=== PATIENT | female | born 1965 | race Caucasian/White ===

== ENCOUNTER 2017-05-28 10:00 | Day surgery (SDC) | payer BC ==
[~2017-05-28] VITALS: Ht 170.2 cm; Wt 75.8 kg
[~2017-05-28 10:00] MED LIST: BUPROPION XL150 MG PO; BYSTOLIC2.5 MG PO; METOPROLOL SUCC50 MG PO; SPIRONOLACTONE25 MG PO
[2017-05-28] MEDS ORDERED: OXYCODON-ACETA1 EAC2 PO (13:28)
[2017-05-28] MEDS ORDERED: IBUPROFEN600 MG PO (13:28)
[2017-05-28] MEDS ORDERED: MAPAP325 MG PO (13:28)
--- NOTE | 2017-05-28 14:20 | NUR ---
ICED WATER GIVEN. CALL LIGHT W/IN REACH. PT DENIES DESIRE FOR FOOD @ THIS TIME.
--- NOTE | 2017-05-28 14:40 | NUR ---
PT REPORTS INCREASED PAIN IN RUQ. RIGHT LOWER INCISION REINFORCED W/GAUZE AND TAPE D/T DRAINAGE THROUGH THE GOWN. PT TOLERATES REINFORCEMENT WELL. JELLO GIVEN. PT EATS AND TOLERATES THAT WELL. MORE ICED WATER GIVEN.
--- NOTE | 2017-05-28 15:13 | NUR ---
PT PUSHES CALL LIGHT TO REPORT "THE PAIN MEDICINE ISN'T WORKING". PT RESTLESSLY MOVING LEGS. ADD'L PRN GIVEN. PT GIVEN HER CELL PHONE FROM HER BAG.
--- NOTE | 2017-05-28 16:13 | NUR ---
MORE ICED WATER GIVEN. PT REQ ADD'L PRN FOR PAIN. PT CONTINUES TO DENY NAUSEA.
--- NOTE | 2017-05-28 16:58 | NUR ---
LE 1640: PT UP TO BR W/RN STANDBY. PT AMBULATES WELL AND VOIDS 200 ML CLEAR YELLOW URINE AND REQ DC HOME. PT DRESSES SELF AND TOLERATES THAT WELL. DC INSTRUCTIONS GIVEN AND PT VERBALIZES UNDERSTANDING. PT TRANSFERS SELF TO AND TO PERSONAL VEHICLE WELL.
--- NOTE | 2017-05-30 08:26 | OR ---
[facility] [address] [place], [place] [address] Signed DATE OF OPERATION: 05/28/2017 SURGEON: Harman Irwin MD PREOPERATIVE DIAGNOSES: Acalculous cholecystitis, gallbladder sludge with biliary pain. POSTOPERATIVE DIAGNOSIS: Acalculous cholecystitis, gallbladder sludge with biliary pain. PROCEDURES: 1. Laparoscopic cholecystectomy with intraoperative cholangiogram. 2. Surgeon-directed fluoroscopy. SURGEON: Harman Irwin M.D. ANESTHESIA: General endotracheal (Se Arellano CRNA) and local 20 mL of 0.25% Marcaine with epinephrine. INDICATION: This 52-year-old white woman is the patient Dr. Jose Teran and was recently seen by him with recurrence of right upper abdominal, epigastric, and right subscapular pain. She had similar episodes a number of months ago and symptoms have been worsening lately. At that time, she underwent a gallbladder ultrasound, which showed biliary sludge. The patient has had accelerating symptoms lately and highly suggestive of a biliary disease. She has incidentally noted to have urinary tract infection, for which I treated her with Bactrim DS 1 p.o. b.i.d. recently. She is admitted at this time to undergo cholecystectomy, preferred by a laparoscopic approach. She understands the risks of bleeding, infection, bile duct injury, need for open procedure, and most importantly failure to cure her symptoms. She understands this and wished to proceed. FINDINGS: Gallbladder was chronically inflamed. The liver was normal. Intraoperative cholangiogram was normal as well. The gallbladder once opened showed chronic inflammatory change of the mucosa and some biliary sludge, but no sign of stones. DESCRIPTION OF PROCEDURE: The patient was brought to the operating room, given a general endotracheal anesthetic. Preoperative antibiotic Ancef was given. Sequential compression device stockings used. Heparin was administered subcutaneously. The abdomen was prepared with a chlorhexidine solution after satisfactory general endotracheal anesthesia, and sterilely draped. Infraumbilical incision was made and using an open Alberto cannula technique Electronically Signed By: HARMAN IRWIN MD 05/30/17 0826 PATIENT NAME: RANDY CALDWELL OPERATIVE REPORT DATE OF : 69 PHYSICIAN: HARMAN IRWIN MD REPORT #: [id number] REPORT IS CONFIDENTIAL AND NOT TO BE RELEASED WITHOUT AUTHORIZATION [facility] [address] [place], [place] [address] Signed pneumoperitoneum achieved to a level of 14 mmHg of carbon dioxide gas. Intraabdominal inspection showed no sign of ascites or carcinomatosis. The liver appeared normal. The gallbladder was obscured initially. Three additional trocars were placed in usual configuration in the subxiphoid, right midclavicular, and right anterior axillary line. Gallbladder was elevated cephalad and retracted laterally. Using blunt electrocautery dissection, the triangle of Calot dissected free identifying well the cystic duct and cystic artery. A clip was applied across the gallbladder cystic duct junction and transverse choledochotomy made the cystic duct. Retrograde milking of the duct showed a thick yellowish bile. There was no sign of stone. Using an Lo type cholangiocatheter, intraoperative cholangiography was undertaken showing free flow of contrast in the biliary tree with prompt emptying into the duodenum. There was minimal retrograde flow and on that basis, morphine 4 mg was administered by the boner meat and after a few minutes of waiting, repeat cholangiography was undertaken at this time showing retrograde filling into the proximal biliary tree and showing a normal biliary anatomy. The catheter was removed. The cystic duct was triply clipped and divided, and the gallbladder dissected free in a retrograde fashion using electrocautery. The gallbladder was extracted through the infraumbilical port site without problem, opened on the back table and found to have thick biliary sludge as well as chronic inflammatory change of the mucosa. There was no sign of neoplasm. Reinspection of the subhepatic space showed no sign of bile leak, bleeding, or other problems. Excess irrigation of fluid was suctioned free and the trocars were removed under direct visualization. The inferior-most 5 mm trocar site on the right side had a minimal amount of oozing, this was secured easily with electrocautery. Plans were then made for closure. The infraumbilical fascial incision was reapproximated with interrupted 0 Vicryl suture. All wounds were copiously irrigated with saline solution and 20 mL of 0.25% Marcaine with epinephrine was injected in the trocar sites. The skin was closed with interrupted 3-0 Vicryl. Steri-Strips were applied. She was ultimately extubated and transferred to recovery in good condition having suffered no complication. Sponge, needle, and instrument counts reported as correct x3. Harman Irwin MD Electronically Signed By: HARMAN IRWIN MD 05/30/17 0826 PATIENT NAME: RANDY CALDWELL OPERATIVE REPORT DATE OF : 69 PHYSICIAN: HARMAN IRWIN MD REPORT #: [id number] REPORT IS CONFIDENTIAL AND NOT TO BE RELEASED WITHOUT AUTHORIZATION [address] [address] Signed /EL /[id number] cc: Esther Teran MD Electronically Signed By: HARMAN IRWIN MD 05/30/17 0826 PATIENT NAME: RANDY CALDWELL OPERATIVE REPORT DATE OF : 69 PHYSICIAN: HARMAN IRWIN MD REPORT #: [id number] REPORT IS CONFIDENTIAL AND NOT TO BE RELEASED WITHOUT AUTHORIZATION
== END 2017-05-28 16:47 | disposition home or self-care (01) ==
LOC: DS 10:00
PROVIDERS: Surgery
PROC: BF131ZZ Fluoroscopy of Gallbladder and Bile Ducts using Low Osmolar Contrast (ICD-10-PCS; 2017-05-28)
PROC: 0FT44ZZ Resection of Gallbladder, Percutaneous Endoscopic Approach (ICD-10-PCS; principal; 2017-05-28 10:45)
DX: K81.1 Chronic cholecystitis (principal); I10 Essential (primary) hypertension; B19.20 Unspecified viral hepatitis C without hepatic coma; F12.90 Cannabis use, unspecified, uncomplicated; Z72.89 Other problems related to lifestyle; Z87.19 Personal history of other diseases of the digestive system; Z87.891 Personal history of nicotine dependence; Z79.899 Other long term (current) drug therapy
CPT/HCPCS: 00790; 74300; J0690; J1100; J1644; J1885; J2250; J2270; J2405; J2704; J2710; J3010; J7120; Q9967

== ENCOUNTER 2018-09-15 14:22 | Emergency (ER) | payer BC ==
[~2018-09-15] VITALS: Ht 170.2 cm; Wt 72.6 kg
[~2018-09-15 14:22] MED LIST changes: +IBUPROFEN600 MG PO; +MAPAP325 MG PO; +OXYCODON-ACETA1 EAC2 PO
--- NOTE | 2018-09-15 19:40 | EKG ---
[facility] [address] [facility] [place] [address] Signed Normal sinus rhythm Possible Left atrial enlargement Borderline ECG When compared with ECG of 27-MAY-2017 15:45, No significant change was found Confirmed by BLAKE CHOI MD ([id number]) on 09/15/2018 7:40:10 PM Electronically Signed By: BLAKE CHOI MD 09/15/181939 PATIENT NAME: JO CALDWELLKASSANDRA [place] Electrocardiogram DATE OF : 69 PHYSICIAN: BLAKE CHOI MD REPORT #: [id number] REPORT IS CONFIDENTIAL AND NOT TO BE RELEASED WITHOUT AUTHORIZATION
== END 2018-09-15 17:13 | disposition home or self-care (01) ==
LOC: ED 14:22
DX: F10.129 Alcohol abuse with intoxication, unspecified (principal); Y90.8 Blood alcohol level of 240 mg/100 ml or more; I10 Essential (primary) hypertension; Z87.891 Personal history of nicotine dependence; Z79.899 Other long term (current) drug therapy
CPT/HCPCS: 70450; 71045; 80053; 84484; 85025; 85610; 93005; 93010; 99284-25; G0480

== ENCOUNTER 2019-11-07 17:38 | Emergency (ER) | payer BC ==
[~2019-11-07] VITALS: Ht 170.2 cm; Wt 72.6 kg
[2019-11-07] MEDS ORDERED: MELOXICAM15 MG PO (17:46)
[2019-11-07] MEDS ORDERED: CYCLOBENZAPRINE10 MG PO (17:46)
--- NOTE | 2019-11-07 22:14 | EKG ---
[facility] [address] [facility] [place] [address] Signed Normal sinus rhythm Possible Left atrial enlargement Borderline ECG When compared with ECG of 15-SEP-2018 15:26, No significant change was found Confirmed by AUGUSTINE CARDOSO MD ([id number]) on 11/07/2019 10:14:18 PM Electronically Signed By: AUGUSTINE CARDOSO MD 11/07/19 2214 PATIENT NAME: RANDY CALDWELL Electrocardiogram DATE OF : 69 PHYSICIAN: AUGUSTINE CARDOSO MD REPORT #: [id number] REPORT IS CONFIDENTIAL AND NOT TO BE RELEASED WITHOUT AUTHORIZATION
== END 2019-11-07 20:15 | disposition home or self-care (01) ==
LOC: ED 17:38
DX: R56.9 Unspecified convulsions (principal); E83.42 Hypomagnesemia; F10.20 Alcohol dependence, uncomplicated; I10 Essential (primary) hypertension; Z87.891 Personal history of nicotine dependence; Z79.899 Other long term (current) drug therapy
CPT/HCPCS: 70450; 71046; 80053; 83735; 84484; 85025; 93005; 93010; 96365; 99285-25; G0480; J3475

== ENCOUNTER 2020-01-04 15:29 | Emergency (ER) | payer BC ==
[~2020-01-04] VITALS: Ht 170.2 cm; Wt 72.6 kg
[~2020-01-04 15:29] MED LIST changes: +CYCLOBENZAPRINE10 MG PO; +MELOXICAM15 MG PO
[2020-01-04] MEDS ORDERED: LEVETIRACETAM250 MG PO (15:38)
[2020-01-04] MEDS ORDERED: DULOXETINE HCL30 MG PO (15:42)
[2020-01-04] MEDS ORDERED: NORCO 5-325 TA1 EACH PO (19:15)
== END 2020-01-04 19:55 | disposition home or self-care (01) ==
LOC: ED 15:29
DX: G40.909 Epilepsy, unspecified, not intractable, without status epilepticus (principal); S01.01XA Laceration without foreign body of scalp, initial encounter; I10 Essential (primary) hypertension; Z87.891 Personal history of nicotine dependence; Z23 Encounter for immunization; Z79.899 Other long term (current) drug therapy; W18.30XA Fall on same level, unspecified, initial encounter
CPT/HCPCS: 80053; 85025; 90471; 90715; 96361; 96365; 96366; 96375; 99284-25; G0480; J1170; J1953; J2060; J7030

== ENCOUNTER 2021-08-04 06:20 | Day surgery (SDC) | payer BC ==
[~2021-08-04] VITALS: Ht 170.2 cm; Wt 62.0 kg
[~2021-08-04 06:20] MED LIST changes: +DULOXETINE HCL30 MG PO; +LEVETIRACETAM250 MG PO; +NORCO 5-325 TA1 EACH PO
--- NOTE | 2021-08-04 07:21 | NUR ---
AFTER CHECKING IN PT, REQUESTED ANESTHESIA CONSULT WITH PATIENT REGARDING ANXIETY, VITAL SIGNS, AND TREMOR. REACH TRUCK OPERATOR MEDICATED PT WITH PRECEDEX IN BAG OF IVF. PULSE OXIMETER REMAINS ON PT. ONE ON ONE CARE AT THIS POINT.
--- NOTE | 2021-08-04 09:09 | NUR ---
PT SITTING UP IN BED, LEGS CROSSED AND READING. PT ADMITS SHE IS ANXIOUS, AND DIDN'T REALLY KNOW WHY. GAVE COMFORT, PT REQUESTED PRAYER BEGAN SHIVERING. PT ACCEPTED WARM BLANKET, RON MILLER IN TO CHECK ON PT. BOLA MORENO ALSO IN CARING FOR PT. WILL FUSE ASSEMBLER PT FOLLOWING DC. WILL FOLLOW NEEDED
--- NOTE | 2021-08-04 09:30 | NUR ---
08/04/21 0930 Basilia Holden 0922-PATIENT ARRIVED TO PACU ON 4L NC RR EVEN LAYING LEFT LATERAL. PATIENT NONAROUSABLE, SR. ABDOMEN SOFT. IVF INFUSING. 0925-PATIENT AROUSING OPENING EYES ORIENTED TO PACU HOLDING PILLOW TO CHEST. DENIES PAIN OR NAUSEA. PATIENT LOOKING AROUND.
--- NOTE | 2021-08-05 06:34 | OR ---
[facility] [address] [place], [place] [address] Signed DATE OF OPERATION: 08/04/2021 SURGEON: Elysia Caballero MD PREOPERATIVE DIAGNOSES: 1. Chronic abdominal pain. 2. Daily alcohol use. 3. Elevated liver function test. 4. Nausea and vomiting. 5. Odynophagia. 6. Gastroesophageal reflux disease. 7. History of non-steroidal anti-inflammatory drugs, now discontinued. 8. Intermittent rectal bleeding. 9. Intermittent diarrhea. 10. Intermittent melena. POSTOPERATIVE DIAGNOSES: 1. Moderate diffuse gastritis. 2. Small hiatal hernia. 3. Mild distal esophagitis. 4. 12-15 mm polyp at 8 cm (left lateral, tattoo). 5. 6 mm polyps x2 at base of cecum. 6. 4 mm polyp on the ileocecal valve. 7. 4 mm polyps x3 in proximal right colon. 8. Minimal sigmoid diverticulosis. PROCEDURES: 1. Esophagogastroduodenoscopy with CLOtest and biopsies of the duodenum, pyloric bulb and antrum. 2. Colonoscopy, snare polypectomy, hot biopsy and injection of tattoo. 3. Rigid proctoscopy. INDICATIONS: Porsche is a 56-year-old female, who was asked to see me for upper and lower endoscopy. I had met her in 2009 at the age 44. She had similar symptoms with chronic abdominal pain and daily alcohol use. Her liver function tests were elevated along with her mean cell volume. Of course, she has been encouraged not to use Tylenol. She has had nausea and vomiting, diaphoresis and even odynophagia. She complains of acid reflux. She has been trying Protonix and sucralfate. She has been given Phenergan as well. She has intermittent diarrhea and rectal bleeding associated with intermittent melena. She Electronically Signed By: ELYSIA CABALLERO MD 08/05/21 0634 PATIENT NAME: PORSCHE CALDWELL OPERATIVE REPORT DATE OF : 69 REPORT #: [id number] PHYSICIAN: ELYSIA CABALLERO MD PCP: SHIRAZ MORALES PA-C REPORT IS CONFIDENTIAL AND NOT TO BE RELEASED WITHOUT AUTHORIZATION [facility] [address] [place], [place] [address] Signed discontinued her diclofenac. She has had her gallbladder removed previously. She could not remember the upper and lower endoscopy from 2009. She has no family history of colon cancer or polyps. Her has also been through several colonoscopies with myself. Consequently, they are familiar with this process. In the office, I gave her a pamphlet on upper and lower endoscopy. She understands the nature of the two tests. We reviewed the risks including, but not limited to gas bloating, crampy abdominal pain, bleeding, perforation requiring surgery, and missed diagnosis. Also, due to her medical issues and her daily use of alcohol, we asked that an anesthesia provider help us once again with monitored anesthesia care and infusion of propofol. That proved to be a morrissey decision. In fact, she required Precedex in our preop area due to withdrawal symptoms. She had expressed understanding and wished to proceed. PROCEDURE IN DETAIL: Porsche was taken into our endoscopy suite and placed in a supine semi-recumbent position. The posterior oropharynx was anesthetized with lidocaine spray. A bite block was utilized for the case. The adult gastroscope was introduced and advanced under direct visualization of camera. Monitored anesthesia care was provided with propofol and ketamine. The duodenum was unremarkable. We took a biopsy from it for pathologic review. We also took a biopsy of the pyloric channel for pathologic review. The stomach showed mild to moderate diffuse erythematous changes consistent with a daily alcohol use. We took a biopsy of the antrum for CLOtest as well as pathologic review. We did not see any obvious ulcerations. Upon retroflexion of scope, we could see just a small hiatal hernia. We did not see any gastric or esophageal varices. The scope had been withdrawn up through the area of the GE junction, which was compliant without stricture. She does have mild irritation and disruption around her Z-line. There was no Scott's mucosa. Very minimal irritation at this point in her distal esophagus. Again, we did not see any obvious varices. The middle and upper esophagus were unremarkable. After this, the gas was suctioned out, the gastroscope removed. Porsche tolerated the procedure quite well. Porsche was then rotated into the left lateral decubitus position. She was maintained on monitored anesthesia care per our nurse tamping machine operator road forms. A digital rectal exam was performed and I could feel a polypoid lesion somewhere between 4 and 7 cm just on digital rectal exam. She does have moderate sized and indurated external hemorrhoids. She has good sphincter tone. The adult colonoscope was introduced. We could easily see this 12 to 15 mm polyp in her rectum. We removed it with a combination of the snare and hot biopsy forceps. We injected a small tattoo right in the base of the center of the polypectomy site. The scope had been reintroduced and we passed the scope all the way up into the cecum without difficulty. Her prep was good. We could see the appendiceal orifice and the ileocecal valve. The above-mentioned polyps were removed with the help of the hot biopsy forceps and then we used the snare on one of the polyps in the base of the cecum. The scope was then withdrawn and we saw few diverticula in the sigmoid Electronically Signed By: ELYSIA CABALLERO MD 08/05/21 0634 PATIENT NAME: PORSCHE CALDWELL OPERATIVE REPORT DATE OF : 69 REPORT #: [id number] PHYSICIAN: ELYSIA CABALLERO MD PCP: SHIRAZ MORALES PA-C REPORT IS CONFIDENTIAL AND NOT TO BE RELEASED WITHOUT AUTHORIZATION [facility] [address] [place] [id number] Signed colon. There were small to moderate in size, few in number, and scattered about. Once in the rectum we retroflexed the scope and we did not see any additional pathology above the anal canal. We could see our polypectomy site. We then inserted our rigid proctoscope and we found the polypectomy site to be 8 cm in the left lateral decubitus position. After this, the gas was allowed to escape and the rigid proctoscope was removed. Porsche tolerated the procedure quite well. RECOMMENDATIONS: I will see Porsche back in my office in 7 to 14 days to review her results. She needs to strongly consider discontinuation of her alcohol. She will need monitored anesthesia care in the future as described above. Elysia Caballero MD ALB/MODL /[id number] cc: YVETTE Barrera MD Copies: SHIRAZ MORALES PA-C, ANDREW L MD ~ Electronically Signed By: ELYSIA CABALLERO MD 08/05/21 0634 PATIENT NAME: JO CALDWELLKASSANDRA [place]iah OPERATIVE REPORT DATE OF : 69 REPORT #: [id number] PHYSICIAN: ELYSIA CABALLERO MD PCP: SHIRAZ MORALES PA-C REPORT IS CONFIDENTIAL AND NOT TO BE RELEASED WITHOUT AUTHORIZATION
--- NOTE | 2021-08-07 10:35 | PATH ---
[facility] [facility] [address] [place], [place] [address] Signed SPECIMEN(S): A DUODENAL BIOPSY SPECIMEN(S): B DUODENAL BULB BIOPSY SPECIMEN(S): C ANTRUM/PYLORUS BIOPSY SPECIMEN(S): D RECTAL POLYP AT 8 CM SPECIMEN(S): E CECAL POLYP SPECIMEN(S): F ILEOCECAL VALVE POLYP SPECIMEN(S): G ASCENDING/RIGHT COLON POLYP SPECIMEN SOURCE: A. DUODENAL BIOPSY B. DUODENAL BULB BIOPSY C. ANTRUM/PYLORUS BIOPSY D. RECTAL POLYP AT 8 CM E. CECAL POLYP F. ILEOCECAL VALVE POLYP G. ASCENDING/RIGHT COLON POLYP CLINICAL HISTORY: Esophagogastroduodenoscopy/colonoscopy. Acid reflux, diarrhea, rectal bleeding. Postop Dx: EGD: Gastritis, small hiatal hernia, distal esophagitis. Colon: Colorectal polyps, diverticulosis. FINAL PATHOLOGIC DIAGNOSIS: A. Duodenum, biopsy: - Duodenal mucosa with focal prominent Dayne's glands. - Negative for increased intraepithelial lymphocytes or villous blunting. - Negative for dysplasia or malignancy. B. Duodenal bulb, biopsy: - Duodenal mucosa with Dayne's glands hyperplasia. - Negative for increased intraepithelial lymphocytes or villous blunting. - Negative for dysplasia or malignancy. C. Stomach, antrum/pylorus, biopsy: - Reactive gastropathy. - Negative for Helicobacter organisms on HE stain. - Negative for dysplasia or malignancy. D. Rectum, polyp at 8 cm, polypectomy: - Fragments of tubular adenoma. - Negative for high-grade dysplasia or malignancy. E. Colon, cecum, polyp, polypectomy: - Fragments of tubular adenoma. - Negative for high-grade dysplasia or malignancy. PATIENT NAME: RANDY CALDWELL PATHOLOGY DATE OF : 69 REPORT #: [id number] PHYSICIAN: MILADYS LAW PCP: SHIRAZ MORALES PA-C REPORT IS CONFIDENTIAL AND NOT TO BE RELEASED WITHOUT AUTHORIZATION [facility] [address] [place], [place] [address] Signed F. Colon, ileocecal valve, polyp, polypectomy: - Tubular adenoma. - Negative for high-grade dysplasia or malignancy. G. Colon, ascending/right, polyp, polypectomy: - Fragments of tubular adenoma. - Negative for high-grade dysplasia or malignancy. NAL:cml:C2NR MICROSCOPIC EXAMINATION: Histologic sections of all submitted blocks are examined by light microscopy. These findings, together with the gross examination, support the pathologic diagnosis. GROSS DESCRIPTION: Seven specimens are received in seven containers, labeled "RL." A. The specimen, labeled "RL, duodenum biopsy," is received in formalin and consists of two shabazz soft tissue fragments that measure 0.2 cm in greatest dimension. The specimen is entirely submitted in cassette (A1). B. The specimen, labeled "RL, duodenum bulb biopsy," is received in formalin and consists of one shabazz soft tissue fragment that measures 0.2 cm in greatest dimension. The specimen is entirely submitted in cassette (B1). C. The specimen, labeled "RL, antrum biopsy," is received in formalin and consists of one shabazz soft tissue fragment that measures 0.1 cm in greatest dimension. The specimen is entirely submitted in cassette (C1). D. The specimen, labeled "RL, rectal polyp at 8 cm," is received in formalin and consists of multiple shabazz soft tissue fragments that measure 2.4 x 2.2 x 0.2 cm in aggregate. The specimen is entirely submitted in cassette (D1). E. The specimen, labeled "RL, cecum polyp," is received in formalin and consists of seven shabazz soft tissue fragments that measure 0.1-0.2 cm in greatest dimension. The specimen is entirely submitted in cassette (E1). F. The specimen, labeled "RL: Ileocecal valve polyp," is received in formalin and consists of one shabazz soft tissue fragment that measures 0.1 cm in greatest dimension. The specimen is entirely submitted in cassette (F1). G. The specimen, labeled "RL, ascending colon polyp," is received in formalin PATIENT NAME: RANDY CALDWELL PATHOLOGY DATE OF : 69 REPORT #: [id number] PHYSICIAN: MILADYS ALW PCP: SHIRAZ MORALES PA-C REPORT IS CONFIDENTIAL AND NOT TO BE RELEASED WITHOUT AUTHORIZATION [address] [address] Signed and consists of four shabazz soft tissue fragments that measure 0.1-0.2 cm in greatest dimension. The specimen is entirely submitted in cassette (G1). JS (under the direct supervision of a pathologist) The Gross Description was prepared using a voice recognition system. The report was reviewed for accuracy; however, sound-alike word errors, addition and/or deletions may occur. If there is any question about this report, please contact Client Services. PERFORMING LABORATORY: The technical component was performed by [facility], [address] [place] [id number] (Babbitt Spinner: Janessa Renteria MD; CLIA# [id number]). Professional interpretation was performed by [facility], [facility], [address] [address] (CLIA# [id number]). Diagnostician: Sandra Urias MD Pathologist Electronically Signed 08/07/2021 Copies: ~ PATIENT NAME: RANDY CALDWELL PATHOLOGY DATE OF : 69 REPORT #: [id number] PHYSICIAN: MILADYS LAW PCP: SHIRAZ MORALES PA-C REPORT IS CONFIDENTIAL AND NOT TO BE RELEASED WITHOUT AUTHORIZATION
== END 2021-08-04 10:20 | disposition home or self-care (01) ==
LOC: DS 06:20 → OPS 06:20 → DS 06:45 → OPS 06:45
PROVIDERS: ATTEND Colon & Rectal Surgery
PROC: 3E0H8KZ Introduction of Other Diagnostic Substance into Lower GI, Via Natural or Artificial Opening Endoscopic (ICD-10-PCS; 2021-08-04)
PROC: 0DB68ZZ Excision of Stomach, Via Natural or Artificial Opening Endoscopic (ICD-10-PCS; principal; 2021-08-04 07:30)
PROC: 0DBE8ZZ Excision of Large Intestine, Via Natural or Artificial Opening Endoscopic (ICD-10-PCS; 2021-08-04 07:30)
PROC: 0DBE8ZZ Excision of Large Intestine, Via Natural or Artificial Opening Endoscopic (ICD-10-PCS; 2021-08-04 07:30)
DX: K21.00 Gastro-esophageal reflux disease with esophagitis, without bleeding (principal); K29.71 Gastritis, unspecified, with bleeding; K31.9 Disease of stomach and duodenum, unspecified; D12.8 Benign neoplasm of rectum; D12.0 Benign neoplasm of cecum; D12.2 Benign neoplasm of ascending colon; K57.31 Diverticulosis of large intestine without perforation or abscess with bleeding; G89.29 Other chronic pain; R10.84 Generalized abdominal pain; R79.89 Other specified abnormal findings of blood chemistry; R11.2 Nausea with vomiting, unspecified; R19.7 Diarrhea, unspecified; K44.9 Diaphragmatic hernia without obstruction or gangrene; K64.4 Residual hemorrhoidal skin tags; I65.23 Occlusion and stenosis of bilateral carotid arteries; I10 Essential (primary) hypertension; F10.20 Alcohol dependence, uncomplicated; F32.A Depression, unspecified; R56.9 Unspecified convulsions; F17.200 Nicotine dependence, unspecified, uncomplicated; F12.90 Cannabis use, unspecified, uncomplicated; Z90.49 Acquired absence of other specified parts of digestive tract
CPT/HCPCS: 80053; 85025; 87077; J2001; J2405; J2704; J7121

== ENCOUNTER 2024-03-08 17:37 | Inpatient (IN) | payer BC ==
[~2024-03-08] VITALS: Ht 170.2 cm; Wt 66.7 kg
[2024-03-08] MEDS ORDERED: ondansetron HCL 4 MG/2 ML VIAL IV ONE ×2 (18:15→23:45)
[2024-03-08] MEDS ORDERED: SODIUM CHLORIDE 0.9% 500 ML IV ONE (18:15)
[2024-03-08 18:33] LABS: BASOPHILS 0.4 % (0-2); EOSINOPHILS 0.1 % (0-6); HEMATOCRIT 36.6 % (35.0-50.0); HEMOGLOBIN 12.2 g/dL (12.0-18.0); LYMPHOCYTES 11.9 % (24-44); MCH 38.6 (27-36); MCHC 33.3 g/dl (30-36); MCV 115.9 fl (81-99); MONOCYTES 9.3 % (0-12); NEUTROPHILS 78.3 % (39-80); PLATELET COUNT 77 K/uL (140-440); RBC 3.16 M/ul (4.3-5.7); RDW 14.6 (10.5-15.0)
[2024-03-08 18:48] LABS: ALBUMIN 2.9 g/dL (3.4-5.0); ALBUMIN/GLOBULIN RATIO 0.52 (1.1-2.4); ANION GAP 27.3 (7-21); BILIRUBIN, TOTAL 5.4 ng/dL (0.2-1.0); BUN/CREATININE RATIO 13.86 (6.0-28.6); CALCIUM 8.5 mg/dL (8.5-10.1); CREATININE, SERUM 1.37 mg/dL (0.55-1.02); MAGNESIUM 1.2 mg/dL (1.8-2.4); POTASSIUM 3.3 mmol/L (3.5-5.1); PROTEIN, TOTAL 8.5 g/dL (6.4-8.2)
[2024-03-08] MEDS ORDERED: BUPROPION HCL150 MG PO (19:08)
[2024-03-08] MEDS ORDERED: LEVETIRACETAM500 MG PO (19:08)
[2024-03-08] MEDS ORDERED: VITAMIN D21250 MCG PO (19:08)
[2024-03-08] MEDS ORDERED: LORazepam 2 MG/ML VIAL IV ONE (19:30)
[2024-03-08] MEDS ORDERED: MULTIVITAMINS 10 ML,FOLIC ACID 1 MG,THIAMINE HCL 100 MG in SODIUM CHLORIDE 0.9% 1,000 ML IV ONE (19:30)
[2024-03-08] MEDS ORDERED: MAGNESIUM SULFATE 2 GM/50 ML BAG IV ONE (19:30)
[2024-03-08] MEDS ORDERED: POTASSIUM CHLORIDE 10 MEQ/100 ML BAG IV SCH ×2 (19:30→23:15)
[2024-03-08] MEDS ORDERED: FAMOTIDINE 20 MG/ 2 ML VIAL IV ONE (19:30)
[2024-03-08] MEDS ORDERED: SODIUM CHLORIDE 0.9% 1,000 ML IV ONE (19:49)
[2024-03-08] MEDS ORDERED: FOLIC ACID 1 MG/0.2 ML ML ONE (19:49)
[2024-03-08] MEDS ORDERED: THIAMINE HCL 200 MG/2 ML VIAL ONE (19:50)
[2024-03-08] MEDS ORDERED: MULTIVITAMINS 10 ML VIAL ONE (19:50)
[2024-03-08 19:54] LABS: BILIRUBIN, URINE NEGATIVE (negative); BLOOD/HGB, URINE SMALL (Negative); KETONE, URINE SMALL (Negative); LEUK ESTERASE, URINE NEGATIVE (negative); NITRITE, URINE NEGATIVE (negative); PH, URINE 5.5 (5-7)
[2024-03-08 20:00] LABS: BACTERIA, URINE RARE /hpf (negative); CASTS, URINE HYALINE 2+ \\lpf; COLLECTION TYPE, URINE CLEAN CATCH; CRYSTALS, URINE NONE SEEN (0-1+); EPITHELIAL CELLS, URINE SQUAMOUS 1+ /lpf (0-1+); REFLEX CULTURE, URINE No (No)
[2024-03-08] MEDS ORDERED: LACTATED RINGER'S 1,000 ML IV ONE ×4 (21:00→23:15)
[2024-03-08] MEDS ORDERED: CEFTRIAXONE/SODIUM CHLORIDE 2 GM/100 ML PIGGYBACK IV ONE (21:15)
[2024-03-08 21:26] LABS: INR 2.42 (0.80-1.30); PROTIME 25.4 Sec (11.2-14.2)
[2024-03-08 22:54] LABS: ANION GAP 12.8 (7-21); BUN/CREATININE RATIO 16.86 (6.0-28.6); CALCIUM 7.2 mg/dL (8.5-10.1); CREATININE, SERUM 0.83 mg/dL (0.55-1.02); MAGNESIUM 1.8 mg/dL (1.8-2.4); POTASSIUM 2.8 mmol/L (3.5-5.1)
[2024-03-08 23:03] LABS: LACTIC ACID, BLOOD 6.8 mmol/L (0.4-2.0)
[2024-03-08] MEDS ORDERED: LORazepam 1 MG TAB PO PRN (23:30)
[2024-03-08] MEDS ORDERED: TUBERCULIN PPD 5 UNITS/0.1 ML VIAL SUB-Q SCH (23:30)
[2024-03-08] MEDS ORDERED: ondansetron HCL 4 MG/2 ML VIAL IV PRN (23:30)
[2024-03-08] MEDS ORDERED: LORazepam 2 MG/ML VIAL IV/IM PRN (23:30)
[2024-03-08] MEDS ORDERED: THIAMINE HCL 100 MG,FOLIC ACID 1 MG,MULTIVITAMINS 10 ML in SODIUM CHLORIDE 0.9% 1,000 ML IV ONE (23:30)
[2024-03-08] MEDS ORDERED: PHYTONADIONE 10 MG/ML AMP SUB-Q ONE (23:45)
[2024-03-09] VITALS (19 sets, daily range): BP systolic 90–133; BP diastolic 55–83
--- NOTE | 2024-03-09 00:15 | NUR ---
PT ARRIVED TO THE UNIT VIA STRETCHER WITH RN. REPORT RECEIVED FROM TEST LAB TECHNICIAN. PT SLEEPING ON ARRIVAL BUT EASILY WAKENS WITH VERBAL STIMULI. PT VITAL SIGNS ARE STABLE.
[2024-03-09 00:52] LABS: HEMATOCRIT 27.4 % (35.0-50.0)
[2024-03-09 00:55] LABS: HEMOGLOBIN 9.4 g/dL (12.0-18.0)
[2024-03-09] MEDS ORDERED: PANTOPRAZOLE SODIUM 40 MG/10 ML VIAL IV ONE (01:15)
--- NOTE | 2024-03-09 01:23 | NUR ---
UPDATE PROVIDED TO ON PATIENT'S LABS AND VS. REVIEWED PLAN OF CARE. SEE EMAR.
[2024-03-09 01:34] LABS: ABO A; ANTIBODY SCREEN NEGATIVE; RH POSITIVE
[2024-03-09] MEDS ORDERED: PROCHLORPERAZINE EDISYLATE 10 MG/2 ML VIAL IV PRN ×2 (01:45→08:30)
[2024-03-09] MEDS ORDERED: LORazepam 2 MG TABLET PO SCH (02:00)
[2024-03-09] MEDS ORDERED: LORazepam 2 MG/ML VIAL IV SCH (02:00)
--- NOTE | 2024-03-09 02:10 | NUR ---
PT STATES SHE FEELS NAUSEOUS. PT GIVEN PRN NAUSEA MEDICATION PER EMAR
[2024-03-09 02:15] LABS: LACTIC ACID, BLOOD 5.3 mmol/L (0.4-2.0)
--- NOTE | 2024-03-09 02:25 | NUR ---
UPDATED ON LABS. SEE EMAR FOR NEW ORDERS.
[2024-03-09] MEDS ORDERED: LACTATED RINGER'S 1,000 ML IV SCH (02:30)
--- NOTE | 2024-03-09 03:15 | NUR ---
PT UP TO COMMODE AND BACK TO BED. PT AMBULATED WELL WITH X1 SBA. PT VOIDED 500CC. PT PROVIDED WITH A WARM BLANKET. NO FURTHER NEEDS AT THIS TIME. CALL LIGHT WITHIN REACH. BED IN LOW AND LOCKED POSTION WITH BED ALARM ON.
--- NOTE | 2024-03-09 04:30 | NUR ---
PT IS RESTING IN BED WITH EYES CLOSED. RESPIRATIONS EVEN AND UNLABORED. PT VITAL SIGNS ARE STABLE. CALL LIGHT WITHIN REACH. BED IN LOW AND LOCKED POSTION WITH BED ALARM ON.
[2024-03-09 05:36] LABS: BASOPHILS 0.6 % (0-2); EOSINOPHILS 0.6 % (0-6); HEMOGLOBIN 8.9 g/dL (12.0-18.0); LYMPHOCYTES 34.8 % (24-44); MCH 38.9 (27-36); MCHC 34.1 g/dl (30-36); MCV 113.8 fl (81-99); MONOCYTES 11.1 % (0-12); NEUTROPHILS 52.9 % (39-80); PLATELET COUNT 52 K/uL (140-440); RBC 2.28 M/ul (4.3-5.7); RDW 14.5 (10.5-15.0)
--- NOTE | 2024-03-09 05:47 | NUR ---
PT UP TO COMMODE. PT STATES SHE FEELS WEAK. PT AMBULATED TO BEDSIDE COMMODE WITH X2 SBA. PT HAD SMALL BM, BLACK IN COLOR. PT ALSO INCONTIENT OF URINE. NEW LINEN PROVIDED. PT WAS A X2 PERSON HEAVY ASSIST BACK TO BED. PT PROVIDED WITH NEW GOWN. PT DENIES ANY PAIN OR FEELING NAUSEOUS AT THIS TIME. PT IS ALERT, BUT FALLS ASLEEP WHILE TALKING. PT IS EASILY WOKEN UP BY VERBAL STIMULATION. PT STATES SHE HAS NO FURTHER NEEDS AT THIS TIME. CALL LIGHT WITHIN REACH, BED IN LOW AND LOCKED POSTION, BED ALARM ON.
[2024-03-09 05:55] LABS: ALBUMIN 1.9 g/dL (3.4-5.0); ALBUMIN/GLOBULIN RATIO 0.49 (1.1-2.4); ANION GAP 9.2 (7-21); BILIRUBIN, TOTAL 3.3 ng/dL (0.2-1.0); BUN/CREATININE RATIO 18.46 (6.0-28.6); CALCIUM 7.3 mg/dL (8.5-10.1); CREATININE, SERUM 0.65 mg/dL (0.55-1.02); MAGNESIUM 1.6 mg/dL (1.8-2.4); POTASSIUM 3.2 mmol/L (3.5-5.1); PROTEIN, TOTAL 5.8 g/dL (6.4-8.2)
[2024-03-09] MEDS ORDERED: CYANOCOBALAMIN 1,000 MCG/ML VIAL IM ONE (07:15)
[2024-03-09] MEDS ORDERED: MAGNESIUM SULFATE 2 GM/50 ML BAG IV ONE (07:15)
[2024-03-09] MEDS ORDERED: POTASSIUM PHOSPHATE 30 MMOL in DEXTROSE 5% 500 ML IV ONE (07:15)
--- NOTE | 2024-03-09 07:30 | NUR ---
REPORT RECEIVED. PATIENT IS AWARE . DR. CABALLERO HAS BEEN IN ROOM TO SEE PATIENT. EGD PLANNED FOR TODAY. PATIENT IS DROWSY.
[2024-03-09] MEDS ORDERED: THIAMINE HCL 100 MG TAB PO SCH (08:00)
--- NOTE | 2024-03-09 08:00 | NUR ---
ASSESSMENT DONE. PATIENT REMAINS DROWSY. SLOW TO RESPOND TO QUESTIONS. ABLE TO FOLLOW COMMANDS, SURGICAL PERMIT SIGNED. PATIENT C/O SLIGHT WARD. HAS SLIGHT DISCOMFORT IN LOWER ABD.
--- NOTE | 2024-03-09 08:18 | NUR ---
THIS SRT IN ROOM WITH RON HAJI TO ASSIST WITH MORNING MED PASS. PT SNORING IN BED, VERY SLEEPY. PT ROUSABLE WITH SOME EFFORT. MORNING VS DONE, MEDS GIVEN. DR. MEEK IN ROOM FOR MORNING ROUNDING. CALL LIGHT WITHIN REACH, PT DENIES ANY FURTHER NEEDS AT THIS TIME.
[2024-03-09] MEDS ORDERED: ondansetron HCL 4 MG/2 ML VIAL IV PRN (08:30)
[2024-03-09] MEDS ORDERED: PANTOPRAZOLE SODIUM 40 MG/10 ML VIAL IV SCH (09:00)
--- NOTE | 2024-03-09 09:00 | NUR ---
PATIENT IS IN ROOM, TALKED WITH HIM ABOUT ENDOSCOPY, HE INDICATES UNDERSTANDING. PATIENT SLEEPING.
--- NOTE | 2024-03-09 09:40 | NUR ---
UP TO BR TO VOID AND HAVE SMALL GRAINY BLACK STOOL. LEGS WEAK, NEEDS DIRECTION AND ASSIST WITH TRANSFER TO COMMODE. CWIA DONE. RATES 2. NO TREATMENT NEEDED. CLORAHEXADINE BATH GIVEN.
--- NOTE | 2024-03-09 11:00 | NUR ---
PATIENT PUT CALL LIGHT ON TO REQUEST TO GET OOB TO COMMODE. HAD VERY SOFT DARK BROWN GREENISH STOOL. BACK TO BED WITH INCIDENT.
--- NOTE | 2024-03-09 11:21 | NUR ---
UR CLINICAL REVIEW: [facility]-MEETS INPT CRITERIA FOR GI BLEED,WILL NOTIFY MD BLAIR INPT 03/09/24 @ 9967 WILL UPDATE REG WILL FAX CLINICALS TO [facility] FOR AUTH DISCHARGE TO HOME WHEN STABLE
--- NOTE | 2024-03-09 11:30 | NUR ---
TO OR VIA STRETCHER FOR EDG. LR ON STRAIGHT TUBING LAURIE. Edilson CREWS ON HOLD AT THIS TIME.
--- NOTE | 2024-03-09 11:37 | CONS ---
[facility] [address], [place] [address] Signed DATE OF CONSULTATION: 03/09/2024 CHIEF COMPLAINT: Melena. HISTORY OF PRESENT ILLNESS: Porsche is a 58-year-old female, apparently I helped the endoscopy clear back in 2009 at age of 44. I also helped her with upper and lower endoscopy again in July 2021 at the age of 56. There is a long history of daily alcohol use with chronic abdominal pain, elevated liver function test, nausea, vomiting, odynophagia, acid reflux, hiatal hernia, intermittent rectal bleeding with intermittent diarrhea and intermittent melena. We found that indeed she had moderate diffuse gastritis and distal esophagitis along with a small hiatal hernia. She also had multiple polyps in the rectum and throughout the colon. She has minimal sigmoid diverticulosis. Once again she had trouble now for two days of nausea, vomiting, and dehydration. She finally came to the emergency room for evaluation. She was severely dehydrated with a lactic acid of 12.9 and elevated liver function tests with a low albumin and elevated INR and a slightly elevated ammonia level. She was admitted to the Internal Medicine Service. She has been hydrated overnight and overall doing better, but she is sedated this morning. Of course, she demonstrated melena and is guaiac positive. I was therefore asked to see her as a general surgeon on-call for consideration of upper endoscopy. PAST MEDICAL HISTORY: Hiatal hernia, acid reflux, colonic polyps, diverticulosis, and cirrhosis of the liver. PAST SURGICAL HISTORY: Includes upper and lower endoscopy in [address] Coelho and again upper and lower endoscopy in July [address] Coelho at the age of 56. She has also had a laparoscopic cholecystectomy in [address] May. SOCIAL HISTORY: She drinks at least six beers every day. She is to [employer] [facility] at [phone]. Lory Crocker is her Physician Management Nurse Rn. She prefers [facility]. FAMILY HISTORY: Not obtainable. REVIEW OF SYSTEMS: She is sedated, not obtainable. The records were reviewed. ALLERGIES: None. Electronically Signed By: ELYSIA CABALLERO MD 03/09/24 1137 PATIENT NAME: PORSCHE CALDWELL CONSULTATION DATE OF : 69 REPORT #: [id number] PHYSICIAN: ELYSIA CABALLERO MD PCP: LORY CROCKER PA-C REPORT IS CONFIDENTIAL AND NOT TO BE RELEASED WITHOUT AUTHORIZATION [facility] [address], [place] [address] Signed MEDICATIONS: Spironolactone 25 mg p.o. daily, metoprolol ER 50 mg p.o. daily, Keppra 500 mg p.o. b.i.d., bupropion 150 mg p.o. daily and vitamin D. PHYSICAL EXAMINATION: VITAL SIGNS: Blood pressure is 90/61, heart rate 113, respiratory rate 27, she is 98.5 degrees. She is 98% on 2 L nasal cannula. She is 5 feet 7 inches at 66 kg. Body mass index of 23. GENERAL: Porsche is a 58-year-old female lying supine in her ICU bed. She is sedated, but she was arousable to alert and awake, but really not interactive and she was not answering any questions. She quickly fell back asleep. LUNGS: Clear to auscultation bilaterally. HEART: She is in sinus tachycardia with no murmurs. ABDOMEN: Soft, flat, nontender. No fluid wave. LABORATORY DATA: Her white blood count 9.9, hemoglobin was 12.2 it is down to 8.9 with resuscitation. Her mean cell volume is 113. Potassium 3.2, CO2 30, creatinine 0.65. Platelet count was 52,000, it was 77,000. Lactic acid now 2.2, it was 12.9. Phosphorus 2.1, magnesium 1.6. Alcohol less than 3. Total bilirubin 3.3, AST 82, ALT 35, alkaline phosphatase 93. Beta-hCG negative. Albumin is 1.9. Urine specific gravity was greater than 1.030. Her INR is 2.42. Ammonia level is 34. RADIOGRAPHIC STUDIES: A chest x-ray from yesterday was unremarkable. An ultrasound in [address] May showed possible sludge, but no mention of any cirrhosis. An ultrasound in 2020 with Lory Crocker showed what looks like some early cirrhosis and a common bile duct around 6 mm and then the ultrasound in June 2023 with Lory Crocker shows the common bile duct now around 10 mm with the cirrhosis, but no ascites with normal hepatopetal flow. ASSESSMENT AND PLAN: Porsche is a 58-year-old female, who presents with progressing cirrhosis related to her alcohol consumption. She once again has the same presentation with the abdominal pain, nausea, vomiting, dehydration with associated daily alcohol use and probably withdrawal. I have been asked to see her for consideration of upper endoscopy. We will have to arrange this around the middle of a day with the help of an anesthesia provider. In the meantime, she needs her potassium and phosphorus magnesium replaced. They do have a banana bag with her IV. We will need to get consent later today from her with respect to her sedation. I reviewed this with the nurse. She has expressed understanding and agrees with the above plan. Electronically Signed By: ELYSIA CABALLERO MD 03/09/24 1137 PATIENT NAME: PORSCHE CALDWELL CONSULTATION DATE OF : 69 REPORT #: [id number] PHYSICIAN: ELYSIA CABALLERO MD PCP: LORY CROCKER PA-C REPORT IS CONFIDENTIAL AND NOT TO BE RELEASED WITHOUT AUTHORIZATION [address] [place], [place] [address] Signed Elysia Caballero MD ALB/MODL /[id number] cc: MD Lory Johnson PA-C Copies: ELYSIA CABALLERO MD, CHLOE K PA-C ~ Electronically Signed By: ELYSIA CABALLERO MD 03/09/24 1137 PATIENT NAME: PORSCHE CALDWELL CONSULTATION DATE OF : 69 REPORT #: [id number] PHYSICIAN: ELYSIA CABALLERO MD PCP: LORY CROCKER PA-C REPORT IS CONFIDENTIAL AND NOT TO BE RELEASED WITHOUT AUTHORIZATION
[2024-03-09] MEDS ORDERED: LIDOCAINE HCL 2% 5 ML SDV ONE (11:38)
[2024-03-09] MEDS ORDERED: propofoL 200 MG/20 ML VIAL ONE (11:40)
[2024-03-09] MEDS ORDERED: KETAMINE in NS 50 MG/5 ML SYR ONE (11:41)
[2024-03-09] MEDS ORDERED: PHARMACY RENAL DOSE ADJUSTMENT 1 DOSE MISC PO SCH (12:00)
--- NOTE | 2024-03-09 12:00 | NUR ---
RETURN TO CCU, REPORT RECEIVED FROM CLERK MANAGER AND SURGERY RN. PATIENT RECEIVED PROPOFOL AND KETAMINE FOR SEDATION DURNING ENDOSCOPY. PATIENT IS VERY DROWSY. ABLE TO FOLLOW FEW COMMANDS. Edilson WATERSS RESTARTED.
--- NOTE | 2024-03-09 12:10 | NUR ---
DR. CABALLERO TALKED WITH PATIENT ABOUT THE RESULTS OF ENDOSCOPY.
--- NOTE | 2024-03-09 12:15 | NUR ---
SMALL SIP OF WATER GIVEN. PATIENT ABLE TO SWALLOW W/O PROBLEMS.
[2024-03-09] MEDS ORDERED: SODIUM CHLORIDE 0.9% 1,000 ML IV SCH (13:00)
--- NOTE | 2024-03-09 13:10 | NUR ---
SPOKE TO PATIENT ABOUT THE DISCHARGE PLAN. PATIENT'S IS AT BEDSIDE. PATIENT PLANS TO GO HOME WITH HER .PATIENT CAN AFFORD HOUSING AND FOOD. PATIENT DOES NOT USE DME. PATIENT CAN TAKE CARE OF ADLS. PATIENT S/P GOING TO THE OR TO BE SCOPED. PATIENT DENIES THE NEED FOR CASE MANAGEMENT'S HELP AT THIS TIME. ENCOURANGED FAMILY TO LET CHIP PERSON KNOW IF THEY NEED FUTURE HELP.
--- NOTE | 2024-03-09 14:06 | NUR ---
TB TEST TO RIGHT INNER ARM GIVEN.
--- NOTE | 2024-03-09 14:43 | NUR ---
VISITED DURING SPIRITUAL CARE ROUNDS. PT APPEARED TO BE SLEEPING. DID NOT DISTURB. PROVIDED PRAYER.
--- NOTE | 2024-03-09 15:32 | NUR ---
SLEEPING, NO DISTESS NOTED. IVF INFUSING AT 75 ML/HR.
[2024-03-09] MEDS ORDERED: SUCRALFATE 1 GM TAB PO SCH (16:00)
--- NOTE | 2024-03-09 16:55 | NUR ---
MED REC COMPLETE
--- NOTE | 2024-03-09 17:45 | NUR ---
UP TO COMMODE TO EXPELL URINE WITH LIQUID GREEN STOOL. UNSTEADY ON FEET. FOLLOWS DIRECTION WELL. MORE ALERT NOW. SITTING UP IN BED TO ATTEMPT TO TAKE CLEAR LIQUIDS WITH STRAWBERRY ENSURE. IS IN ROOM. NO S/S OF DT'S.
--- NOTE | 2024-03-09 19:20 | NUR ---
NO FUTHER CHANGES. REPORT TO NEXT SHIFT. IVF CONTINUE TO INFUSE AT 75 ML/HR.
--- NOTE | 2024-03-09 19:30 | NUR ---
Report received from Trina VELASQUEZ. Patient resting in bed, states no needs at this time, denies pain. IVF infusing WNL. Patient agreeable to plan of care for night. Call light in reach.
--- NOTE | 2024-03-09 20:58 | NUR ---
Scheduled medications administered and assessment complete. Patient resting in bed with eyes closed, awakens to this RN entering. Denies pain or needs. Takes carafate in slurry. VSS, on RA, Afebrile. LSC, HRR, BTA. CMS, skin intact. Denies need for BSC. Call light in reach.
[2024-03-09] MEDS ORDERED: buPROPion HCL 150 MG TABCR PO SCH (21:00)
[2024-03-09] MEDS ORDERED: levETIRAcetam 500 MG TAB PO SCH (21:00)
[2024-03-10] VITALS (14 sets, daily range): BP systolic 107–157; BP diastolic 57–90
--- NOTE | 2024-03-10 | NUR ---
Rounded on patient for focused assessment, patient resting in bed with eyes closed, on RA, even and unlabored respirations noted. IVF infusing. VSS. No needs identified at this time. Call light in reach.
--- NOTE | 2024-03-10 03:05 | NUR ---
Rounded on patient, who is sitting up in bed with gown off, appearing confused to surroundings. Startled to this RN entering. Patient states "I wet the bed", this RN and RN Nicole in room for linen change and assisting patient to BSC for further void. Smear of green/brown BM noted. Patient denies needs at this time. New bag of IV fluid hung per order. Call light in reach.
[2024-03-10 05:30] LABS: HEMATOCRIT 23.1 % (35.0-50.0); HEMOGLOBIN 7.8 g/dL (12.0-18.0); MCH 38.9 (27-36); MCHC 33.9 g/dl (30-36); MCV 114.7 fl (81-99); RBC 2.01 M/ul (4.3-5.7); RDW 14.3 (10.5-15.0)
[2024-03-10 05:35] LABS: PLATELET COUNT 47 K/uL (140-440)
[2024-03-10 05:47] LABS: BANDS, MANUAL DIFF 2; BASOPHILS, MANUAL DIFF 2; EOSINOPHILS, MANUAL DIFF 2; LYMPHOCYTES, MANUAL DIFF 39; MONOCYTES, MANUAL DIFF 9; NEUTROPHILS, MANUAL DIFF 46
[2024-03-10 05:48] LABS: ALBUMIN 1.7 g/dL (3.4-5.0); ALBUMIN/GLOBULIN RATIO 0.5 (1.1-2.4); BUN/CREATININE RATIO 17.85 (6.0-28.6); CREATININE, SERUM 0.56 mg/dL (0.55-1.02); MAGNESIUM 1.5 mg/dL (1.8-2.4); PHOSPHORUS, INORGANIC 2.8 mg/dL (2.5-4.9); PROTEIN, TOTAL 5.1 g/dL (6.4-8.2)
--- NOTE | 2024-03-10 05:49 | NUR ---
Patient resting in bed with eyes closed. Even and unlabored RR noted. IVF infusing WNL. On RA. VSS. Call light in reach.
--- NOTE | 2024-03-10 06:02 | OR ---
[facility] [address], [place] [address] Signed DATE OF OPERATION: 03/09/2024 SURGEON: Elysia Caballero MD PREOPERATIVE DIAGNOSES: 1. Melena. 2. Alcohol withdrawal. 3. Nausea and vomiting. 4. Cirrhosis of the liver. 5. Hiatal hernia. 6. Acid reflux. POSTOPERATIVE DIAGNOSES: 1. Distal antral gastric ulcer (nonbleeding). 2. Moderate diffuse gastritis. 3. [id number] distal esophagitis. 4. Tiny hiatal hernia. PROCEDURE: Esophagogastroduodenoscopy with CLOtest. ESTIMATED BLOOD LOSS: None. INDICATIONS: Porsche is a 58-year-old female, well known to our hospital. She has alcohol-related cirrhosis of the liver. I helped her clear back in 2009 at the age of 44 with upper and lower endoscopy. I helped her again in July of 2021 at the age of 56. She is known to have some gastritis, esophagitis, and a small hiatal hernia. She also had colonic polyps and diverticulosis. In 2016, Dr. May had removed her gallbladder. In looking back, the ultrasound in 2016 mentioned some sludge in the gallbladder, but no obvious cirrhosis. An ultrasound in 2020 describes cirrhosis and the common bile duct is 6 mm. Another ultrasound in June of 2023 shows again that the gallbladder had been removed. The common bile duct up to about 10 mm along with the cirrhosis of the liver, but no ascites. Porsche had developed nausea, vomiting, probably some level of alcohol withdrawal in the last couple of days. She finally came to the emergency room for evaluation. She was having black tarry stool. Of course, it is guaiac positive. She was quite dehydrated with a lactic acid of 12.2. Liver function tests were off including INR 2.42. She was admitted to the hospital service. She has been aggressively hydrated, lactic acid come down to 2.2. Her electrolytes have been Electronically Signed By: ELYSIA CABALLERO MD 03/10/24 0602 PATIENT NAME: PORSCHE CALDWELL OPERATIVE REPORT DATE OF : 69 REPORT #: [id number] PHYSICIAN: ELYSIA CABALLERO MD PCP: SHIRAZ MORALES PA-C REPORT IS CONFIDENTIAL AND NOT TO BE RELEASED WITHOUT AUTHORIZATION [facility] [address] [place], [place] [address] Signed replaced. Her hemoglobin went from 12.2 down to 8.9 with resuscitation. The platelets were 77,000, down to 52,000. The mean cell volume is 113. Total bilirubin is 3.3, AST 82, ALT 35, alkaline phosphatase is 93, and albumin is 1.9. Ammonia was a little up at 34. I have been asked to see her as a general surgeon on-call for consideration of repeat upper endoscopy. Otherwise, Porsche has done well overnight. She has also needed a little Ativan throughout the night. I met with Porsche this morning, and I reviewed the above findings with her. We also reviewed upper endoscopy. She is very aware of upper and lower endoscopy. She understands there is risk including, but not limited to gas bloating, crampy abdominal pain, bleeding, perforation requiring surgery, and missed diagnosis. We also reviewed the need for monitored anesthesia care given her medical issues including liver failure as well as the acuity of the situation. She had expressed understanding and wished to proceed. PROCEDURE NOTE: Porsche was taken into our endoscopy suite and placed in the supine semi-recumbent position. She was given monitored anesthesia care with propofol infusion per our nurse ground host/hostess. A bite block was utilized for the case. The adult gastroscope was introduced and advanced under direct visualization of camera without difficulty. The duodenum and pyloric bulb were unremarkable; however, she has a moderate-sized nonbleeding ulcer in the distal antrum with surrounding edema and erythema. We took a single biopsy in the antrum for CLOtest. The rest of her stomach showed moderate diffuse gastritis, which was chronic in her situation. She has a tiny hiatal hernia, which we saw upon retroflexion of scope. The scope was withdrawn up to the area of the GE junction, which was compliant without stricture. We saw no gastric or esophageal varices. From the vomiting, she does have some irritation around the Z-line and up the distal esophagus. The middle and upper esophagus were much better. After this, the gas was suctioned out and the gastroscope removed. Porsche tolerated the procedure quite well. RECOMMENDATIONS: Porsche will be returning to the ICU under the hospital service. She will be returning to a clear liquid diet and stay on her proton pump inhibitor. Elysia Caballero MD ALB/MODL /[id number] Electronically Signed By: ELYSIA CABALLERO MD 03/10/24601 PATIENT NAME: PORSCHE CALDWELL OPERATIVE REPORT DATE OF : 69 REPORT #: [id number] PHYSICIAN: ELYSIA CABALLERO MD PCP: SHIRAZ MORALES PA-C REPORT IS CONFIDENTIAL AND NOT TO BE RELEASED WITHOUT AUTHORIZATION [facility] [address] [place] [address] Signed cc: YVETTE Barrera MD Copies: SHIRAZ MORALES PA-C, ANDREW L MD ~ Electronically Signed By: ELYSIA CABALLERO MD 03/10/24 0602 PATIENT NAME: PORSCHE CALDWELL OPERATIVE REPORT DATE OF : 69 REPORT #: [id number] PHYSICIAN: ELYSIA CABALLERO MD PCP: SHIRAZ MORALES PA-C REPORT IS CONFIDENTIAL AND NOT TO BE RELEASED WITHOUT AUTHORIZATION
--- NOTE | 2024-03-10 06:50 | NUR ---
Rounded on patient, resting in bed with eyes closed, RR even and unlabored. IV pump totals cleared. No identified needs at this time.
--- NOTE | 2024-03-10 07:30 | NUR ---
REPORT RECEIVED. PATIENT UP TO COMMODE TO EXPELL URINE WITH GREEN STOOL THEN TO CHAIR. FOLLOWING DIRECTION. SHAKEY ON FEET.
--- NOTE | 2024-03-10 08:00 | NUR ---
ASSESSMENT DONE. NAUSEATED. NOT ABLE TO TAKE BREAKFAST AT THIS TIME. C/O LOWER ABD PAIN. ABD IS SOFT AND DISTENDED. IVF PATENT. SOMEWHAT SLOW TO ANWERE QUESTIONS. FLAT AFFECT. TALKED WITH PATIENT ABOUT POC. HAS NO QUESTIONS AT THIS TIME.
[2024-03-10] MEDS ORDERED: POTASSIUM CHLORIDE 40 MEQ,LIDOCAINE HCL 1% 40 MG in DEXTROSE 5% 250 ML IV ONE ×2 (08:15→14:15)
[2024-03-10] MEDS ORDERED: MAGNESIUM SULFATE 2 GM/50 ML BAG IV SCH (08:15)
--- NOTE | 2024-03-10 08:30 | NUR ---
ROUTINE MEDS GIVEN. ZOFRAN 4 MG IV GIVEN. PATIENT IN ROOM. UPDATE GIVEN TO HIM.
--- NOTE | 2024-03-10 09:00 | NUR ---
IN ROOM WITH RON HAJI FOR MORNING CARES AND MORNING MED PASS. PT IS SITTING UP IN CHAIR WITH BLANKET, REQUESTS THAT HER FEET STAY DOWN FOR CURRENT MOMENT. PT REFUSED BREAKFAST, BUT WAS AGREEABLE TO AN APPLE FLAVORED ENSURE ON BEDSIDE TABLE IN CASE SHE FELT LIKE HAVING SOME LATER. PT HAS BEEN DRY HEAVING. RON HAJI ADMINISTERED ANTI-NASUEA MEDS. MORNING MED PASS DONE. CARLOS IN ROOM. ROOM TIDIED, TRASH EMPTIED. CALL LIGHT WITHIN REACH, PT AND DENY AND FURTHER NEEDS AT THIS TIME.
--- NOTE | 2024-03-10 10:11 | NUR ---
Sitting up in recliner. Discussed alcohol use. Offered to assist patient to get connected to [employer]. States "I'm sure I can find the number in the phone book or on the internet." Does not want further information at this time. Carter Garner RN, notified of converstation with patient.
[2024-03-10] MEDS ORDERED: THIAMINE HCL 100 MG,FOLIC ACID 1 MG,MULTIVITAMINS 10 ML in SODIUM CHLORIDE 0.9% 1,000 ML IV ONE (10:30)
[2024-03-10] MEDS ORDERED: CALCIUM GLUCONATE 1,000 MG/10 ML VIAL IV ONE (11:15)
--- NOTE | 2024-03-10 11:28 | NUR ---
PT REQUESTED TO USE BSC. THIS SRT AND RON HAJI IN ROOM TO ASSIST. PT SEEMS TO BE MOVING BETTER AND STRONGER TODAY. PLACED BSC AT 90 DEGREE ANGLE TO BED. PT VOIDED 300 CC OF DARK ORANGE COLORED URINE. RON HAJI ASSISTED PT BACK TO BED WHILE THIS SRT MEASURED AND FLUSHED URINE. TRASHES EMPTIED, ROOM TIDIED. SCD'S HOOKED BACK UP, CALL LIGHT WITHIN REACH. PT DENIES ANY FURTHER NEEDS AT THIS TIME.
[2024-03-10] MEDS ORDERED: LORazepam 2 MG/ML VIAL IV/IM PRN (11:30)
[2024-03-10] MEDS ORDERED: LORazepam 1 MG TAB PO PRN (11:30)
--- NOTE | 2024-03-10 11:30 | NUR ---
IVF, MG, KCL INFUSING. AFFECT REMAINS FLAT. DR. CABALLERO WAS IN TO SEE PATIENT EARLIER. DENIES NAUSEA.
[2024-03-10 13:14] LABS: HEMATOCRIT 26.3 % (35.0-50.0)
[2024-03-10 13:17] LABS: BASOPHILS 0.7 % (0-2); EOSINOPHILS 3.7 % (0-6); HEMOGLOBIN 8.7 g/dL (12.0-18.0); MCHC 33.2 g/dl (30-36); MCV 117.5 fl (81-99); MONOCYTES 14.9 % (0-12); NEUTROPHILS 52.7 % (39-80); RBC 2.24 M/ul (4.3-5.7); RDW 14.2 (10.5-15.0)
[2024-03-10 13:23] LABS: BUN/CREATININE RATIO 9.45 (6.0-28.6); CALCIUM 7.4 mg/dL (8.5-10.1); CREATININE, SERUM 0.74 mg/dL (0.55-1.02); MAGNESIUM 2.4 mg/dL (1.8-2.4)
[2024-03-10 13:40] LABS: PLATELET COUNT 42 K/uL (140-440)
--- NOTE | 2024-03-10 14:43 | NUR ---
VISITED DURING SPIRITUAL CARE ROUNDS. PT APPEARED TO BE SLEEPING. DID NOT DISTURB. PROVIDED PRAYER.
--- NOTE | 2024-03-10 14:45 | NUR ---
PHYS THERAPY HERE TO WORK WITH PATIENT. SEE PHYS THERAPY NOTE.
--- NOTE | 2024-03-10 16:00 | NUR ---
SITTING UP IN CHAIR. ABD IS MORE DISTENDED. HAS BEEN USING HEAT FOR COMFORT ON LOWER ABD. PATIENT HAS BEEN ALERT MOST OF THE DAY. COOPERATIVE. EYES JAUNDICE. TALKED WITH PATIENT ABOUT GETTING HELP FOR ETOH ADDICTION. PATIENT RECEPTIVE TO THIS TALK.
--- NOTE | 2024-03-10 17:30 | NUR ---
TOOK ONLY FEW BITES OF DINNER. HAS BEEN TAKING MILK AND APPLE ENSURE. IV KCL INFUSING. DR. TRAYLOR AWARE THE LABS WILL BE DRAWN LATE. ABD IS LARGER TODAY THAN YESTERDAY. ABD IS SOFT.
[2024-03-10 20:05] LABS: BASOPHILS 0.7 % (0-2); HEMATOCRIT 24.2 % (35.0-50.0); HEMOGLOBIN 8.2 g/dL (12.0-18.0); LYMPHOCYTES 29.9 % (24-44); MCH 38.9 (27-36); MCHC 33.8 g/dl (30-36); MCV 115.2 fl (81-99); MONOCYTES 16.1 % (0-12); NEUTROPHILS 49.3 % (39-80); PLATELET COUNT 50 K/uL (140-440); RDW 14.2 (10.5-15.0)
[2024-03-10 20:14] LABS: ANION GAP 8.9 (7-21); BUN/CREATININE RATIO 9.52 (6.0-28.6); CALCIUM 7.7 mg/dL (8.5-10.1); CREATININE, SERUM 0.63 mg/dL (0.55-1.02); POTASSIUM 3.9 mmol/L (3.5-5.1)
--- NOTE | 2024-03-10 20:45 | NUR ---
SBAR REPORT RECEIVED FROM RON HAIJ. ALL EVENTS OF THE DAY WERE DISCUSSED AND PLAN OF CARE REVIEWED. PATIENT RANDY IS NOTED TO BE PLEASANT AND COOPERATIVE, CONVERSING WITH SPECIAL DEPUTY SHERIFF, ABLE TO ENDORSE NEEDS AND DESIRES. 1958- CLEARANCE CUTTER DRAW FOR CBC/BMP 2004- P ASSIST TO BATHROOM. 300CC YELLOW URINE/STOOL MIX. CLARISA CARE PERFORMED WITH ASSISTANCE 2005- BACK TO BED, SCD'S PLACED BACK ON, WARM BLANKET PROVIDED. RANDY REQUESTED "SOMETHING FOR SLEEP" TONIGHT. 2029- MD TRAYLOR CALLED FOR MELATONIN. SEE EMAR FOR NEW ORDER. VSS AND WDL PER MONITOR NEUR0- ALERT AND ORIENTED X 4, FOLLOWS COMMANDS, ENDORSES DULL PAIN IN ABDOMEN. WARM PACKS PROVIDED, PERRL, STANDBY ASSIST CARDIAC- ST, AFEBRILE, NO EDEMA, PALPABLE PULSES, MURMUR AUSCULTATED RESP- RA, CLEAR BREATH SOUNDS CLEAR, 02 97% GI/- HYPERACTIVE BOWEL TONES, VOIDS/ BM IN COMMODE, BILIOUS STOOL NOTED, SWALLOWS PILLS DISSOLVED IN LIQUID INT- SEE ASSESSMENT BILATERAL PIV- PATENT AND INTACT. ABLE TO FLUSH BUT NOT ASPIRATE NS AT 75CC PER HOUR
[2024-03-10] MEDS ORDERED: MELATONIN 3 MG TAB PO SCH (21:00)
--- NOTE | 2024-03-10 21:33 | NUR ---
PM MEDICATIONS TAKEN WHOLE WITH STRAWBERRY ENSURE. RANDY ENDORSED RESTROOM NEEDS. STAND BY ASSIST TO BATHROOM. 300CC YELLOW URINE VOIDED. BACK IN BED, STATES COMFORTABLE
--- NOTE | 2024-03-10 23:56 | NUR ---
HOURLY ROUNDING COMPLETED. RANDY REPORTED RESTOOM NEEDS. STANDBY ASSIST TO RESTROOM. SINUS TACHYCARDIA WITH ACTIVITY HR 110. 300CC CLEAR YELLOW URINE. BACK IN BED. NO OTHER NEEDS REPORTED AT THIS TIME
[2024-03-11] VITALS (12 sets, daily range): BP systolic 127–161; BP diastolic 69–85
--- NOTE | 2024-03-11 01:47 | NUR ---
PATIENT ASSISTED TO THE BR A SBA. PATIENT INCONTINENT OF A SMALL AMOUNT OF URINE. PATIENT ABLE TO VOID AND HAVE BM. PATIENT ABLE TO COMPLETE SELF CARE. PATIENT DID HAVE NOTED BRIGHT RED BLOOD ON WIPE WHEN COMPLETING SELF CLARISA CARE. NO NOTED BLOOD IN TOILET WITH BM OR URINE. PATIENTS LINEN AND GOWN CHANGED. PATIENT IS BACK IN BED RESTING. PATIENT PROVIDED WITH OSKAR PRADEEP. PATIENT DENIES ANY FURTHER NEEDS. CALL LIGHT IN REACH. IV INFUSING PER ORDER.
--- NOTE | 2024-03-11 03:28 | NUR ---
RANDY CALLED AND ENDORSED RESTROOM NEEDS. 300CC YELLOW URINE. BACK IN BED, TUCKED IN, SCD IN PLACE, GTT NS 75CC PER HOUR
[2024-03-11 05:34] LABS: BASOPHILS 1.1 % (0-2); EOSINOPHILS 3.5 % (0-6); HEMATOCRIT 22.6 % (35.0-50.0); HEMOGLOBIN 7.6 g/dL (12.0-18.0); LYMPHOCYTES 30.1 % (24-44); MCH 39.1 (27-36); MCHC 33.5 g/dl (30-36); MCV 116.6 fl (81-99); MONOCYTES 15.4 % (0-12); NEUTROPHILS 49.9 % (39-80); RBC 1.94 M/ul (4.3-5.7); RDW 14.2 (10.5-15.0)
[2024-03-11 05:36] LABS: PLATELET COUNT 43 K/uL (140-440)
--- NOTE | 2024-03-11 05:42 | NUR ---
PATIENT RANDY IS RESTING WITH EYES CLOSED. LYING ON RIGHT SIDE. VSS WDL PER MONITOR. SAFETY CHECK OF ROOM PERFORMED. NO NEEDS IDENTIFIED AT THIS TIME
[2024-03-11 05:49] LABS: ALBUMIN 1.9 g/dL (3.4-5.0); ALBUMIN/GLOBULIN RATIO 0.54 (1.1-2.4); ANION GAP 12.2 (7-21); BUN/CREATININE RATIO 8.77 (6.0-28.6); CALCIUM 7.6 mg/dL (8.5-10.1); CREATININE, SERUM 0.57 mg/dL (0.55-1.02); PHOSPHORUS, INORGANIC 2.4 mg/dL (2.5-4.9); POTASSIUM 3.2 mmol/L (3.5-5.1); PROTEIN, TOTAL 5.4 g/dL (6.4-8.2)
--- NOTE | 2024-03-11 06:01 | NUR ---
ROCIO ASSIST TO THE RESTROOM. UP IN CHAIR. PATIENT ENDORSES HUNGER THIS AM. RANDY WOULD LIKE A STRAWBERRY/ BANANA SMOOTHIE, BUTTERED WHEAT TOAST, APPLE ENSURE, AND WHOLE MILK FOR BREAKFAST.
--- NOTE | 2024-03-11 06:45 | NUR ---
REFERRED BY RON ISRAEL FOR VISIT. PT EXHIBITING SIGNS OF DEPRESSION: FLAT AFFECT, LACK OF ENGAGEMENT, LIMITED RESPONSES. ELECTROMEDICAL EQUIPMENT REPAIRER PROVIDED SUPPORTIVE PRESENCE, FACILITATED INTERACTION WITH THERAPY DOG, FACILITATED LIFE REVIEW, PROVIDED PRAYER. PT EXPRESSED HOPE, GRATITUDE.
--- NOTE | 2024-03-11 08:05 | NUR ---
HAND OFF REPORT RECEIVED FROM RON ISRAEL. PT SITTING IN CHAIR. PT STATES SHE IS TIRED AND DID NOT SLEEP VERY WELL. PT IS A/O. PT IS ON ROOM AIR WITH SATURATION AT 100%. PT BT ARE ACTIVE AND ABDOMEN IS TENDER TO TOUCH. PT STATES HER PAIN LEVEL IS A 3/10. PT DENIES FEELING NAUSEOUS. PT VITAL SIGNS STABLE. NO NEEDS AT THIS TIME. CALL LIGHT WITHIN REACH.
[2024-03-11] MEDS ORDERED: POTASSIUM PHOSPHATE 30 MMOL in DEXTROSE 5% 500 ML IV ONE (08:30)
--- NOTE | 2024-03-11 09:30 | NUR ---
DR MEEK IN PT ROOM TO DISCUSS PLAN OF CARE.
--- NOTE | 2024-03-11 09:45 | NUR ---
RIGHT PERIPHERAL IV SITE TAKEN OUT. TIP INTACT. PT TOLERATED WELL. COBAND AND GAUZE APPLIED TO SITE.
--- NOTE | 2024-03-11 09:51 | NUR ---
PT UP TO RESTROOM. PT WAS STEADY ON FEET, X1 SBA. PT VOIDED 200CC OF URINE. PT STATES SHE WANTED TO GET BACK IN BED AND TRY TO SLEEP. PT BECAME TEARFUL, AND STATES SHE WANTED TO BE LEFT ALONE. PT REQUESTED DOOR TO BE CLOSED. CALL LIGHT WITHIN REACH. BED IN LOW AND LOCKED POSITON.
--- NOTE | 2024-03-11 10:30 | NUR ---
pt resting in bed with eyes closed. Respirations even and unlabored. Pt vital signs stable. call light within reach.
--- NOTE | 2024-03-11 11:30 | NUR ---
OCCUPATIONAL THERAPY IN ROOM TO SEE PATIENT. PT UP TO BATHROOM, X1 SBA. PT TOLERATED WELL. PT VOIDED 300CC OF YELLOW URINE. PT BRUSHED TEETH AND PROVIDED WITH A WASH CLOTH TO WASH HER FACE. PT BACK TO CHAIR. NO FURTHER NEEDS AT THIS TIME. CALL LIGHT WITHIN REACH.
--- NOTE | 2024-03-11 12:00 | NUR ---
PT SITTING UP IN CHAIR EATING LUNCH. DR TRAYLOR ROUNDED IN PT ROOM TO DISCUSS UPDATED PLAN OF CARE. PLAN IS TO MOVE PT TO THE MED-SURG FLOOR AND DISCHARGE IN THE MORNING. PT APPEARS TO BE IN A MUCH BETTER MOOD THIS AFTERNOON. PT IS ALERT AND ORIENTED. PT REMAINS ON ROOM AIR, LUNG SOUNDS ARE CLEAR. PT BT ARE ACTIVE, ABDOMEN REMAINS TENDER TO TOUCH. PT DENIES ANY PAIN OR FEELING NAUSEOUS AT THIS TIME. PT HAS NO NEEDS AT THIS TIME. CALL LIGHT WITHIN REACH.
[2024-03-11] MEDS ORDERED: THIAMINE HCL 100 MG TAB PO SCH (12:09)
--- NOTE | 2024-03-11 13:11 | NUR ---
PT FINISHED WITH LUNCH AND WANTING TO GET BACK IN BED. PT AMBULATED TO BED WITH X1 SBA AND TOLERATED WELL. PT REQUEST HER WATCH OUT OF LOCK BOX, WATCH PROVIDED. PT ATE ABOUT 40% OF HER LUNCH, STATES SHE WANTED TO TAKE IT SLOW. PT HAS NO FURTHER NEES AT THIS TIME. CALL LIGHT WITHIN REACH.
--- NOTE | 2024-03-11 13:30 | NUR ---
PT LEFT HAND PERIPHERAL IV TAKEN OUT. PT STATES IV SITE IS PAINFUL. IV SITE WITH TRACE AMOUNT OF SWELLING NOTED. TIP INTACT WITH REMOVAL. PATIENT TOLERATED WELL.
--- NOTE | 2024-03-11 14:25 | NUR ---
UR CONCURRENT REVIW: MCG- DOES NOT MEET GL STAGE 2 FOR HEMATIOLOGY GRG. [facility]KIS COMPLETED [facility] INPT 09/09/23 @ 5702 CLINICAL SUBMITTED FOR AUTH REVIEW DISCHARGE TO HOME WHEN STABLE 03/13/24
--- NOTE | 2024-03-11 14:50 | NUR ---
PT LEFT UNIT AND TRANSFERRED TO MEDICAL FLOOR ROOM 113. ALL PATIENT BELONGINGS TAKEN WITH PATIENT. PATIENT VITAL SIGNS STABLE. REPORT GIVEN TO RON RALPH.
--- NOTE | 2024-03-11 15:48 | NUR ---
PT TO ROOM ON MED/SURG AFTER WORKING WITH PHYSICAL THERAPY. RECEIVED REPORT FROM RON NARVAEZ. PT UP TO CHAIR AWAKE, DENIES PAIN, NAUSEA, AND SOB AT THIS TIME. PT ARRIVES TO ROOM WITH ONE IV IN L AC. SCDs NOT IN PLACE AT THIS TIME D/T PT WORKING WITH PHYSICAL THERAPY AND THEN BEING UP TO CHAIR IN ROOM. ABDOMEN REMAINS MILDLY DISTENDED, TENDER TO PALPATION. BOWEL TONES ACTIVE. GENERALIZED SWELLING PRESENT IN L HAND, CCU RN STATES BEGAN WHEN IV IN L HAND WAS IN, L HAND IV DC'D PRIOR TO PT TRANSFER PER CCU RN. PT DENIES PAIN IN AREA, NO REDNESS IN AREA. PT STATES NO NEEDS AT THIS TIME, CALL LIGHT WITHIN REACH.
--- NOTE | 2024-03-11 17:42 | NUR ---
PT AMBULATING HALLWAY INDEPENDENTLY, STATES NO NEEDS AT THIS TIME.
--- NOTE | 2024-03-11 17:53 | NUR ---
PT UP TO CHAIR EATING DINNER, DENIES PAIN, NAUSEA, OR SOB AT THIS TIME. PT STATES NO CURRENT NEEDS. CALL LIGHT WITHIN REACH.
--- NOTE | 2024-03-11 19:46 | NUR ---
REPORT RECEIVED FROM KOKI @ 1765. PT UP IN RECLINER, NO NEEDS AT THIS TIME. WHITE BOARD UPDATED.
--- NOTE | 2024-03-11 20:46 | NUR ---
TRANSIT WORKER OBTAINED VITALS AND I&O. PT STATES NO NEEDS AT THIS TIME. CALL LIGHT WITHIN REACH.
--- NOTE | 2024-03-11 21:15 | NUR ---
ASSESSMENT COMPLETED. PT IN BED, WAS VISITING, BUT HAS GONE HOME. R/A, ANSWERS QUESTIONS APPROPRIATELY, KNOWN TO THIS NURSE. PT DID NOT STATE SHE REMEMBERS THIS RN. PT DENIES PAIN, OR NEEDS. HS MEDICATIONS ADMINISTERED, PT HAS STATED SHE DID NOT SLEEP MUCH LAST NIGHT IN CCU. HOPES TO SLEEP. POC ACCEPTABLE TO PT. PT INSTRUCTED TO CALL, ALL SUPPLIES WITHIN REACH.
--- NOTE | 2024-03-11 23:55 | NUR ---
RESP EVEN AND UNLABORED, TELE READING 91
[2024-03-12 00:39] VITALS: BP 143/65
--- NOTE | 2024-03-12 00:43 | NUR ---
CALL LIGHT ANSWERED. PT NEEDED TO USE BATHROOM. INSULATION MACHINE OPERATOR SBA PT TO BATHROOM. PT VOIDED. PT ASSISTED BACK TO BED. INSULATION MACHINE OPERATOR OBTAINED AND DOCUMENTED I&O. PT STATES NO FURTHER NEEDS AT THIS TIME. CALL LIGHT WITHIN REACH.
--- NOTE | 2024-03-12 00:49 | NUR ---
THIS RN ASSUMING CARE OF PATIENT. PATIENT RESTING IN BED, DENIES NEEDS AT THIS TIME. CALL LIGHT IN REACH.
[2024-03-12 00:57] VITALS: BP 143/65
--- NOTE | 2024-03-12 02:30 | NUR ---
PATIENT RESTING IN BED ON BACK. RESPIRATIONS EVEN AND UNLABORED. CALL LIGHT IN REACH.
--- NOTE | 2024-03-12 03:36 | NUR ---
CALL LIGHT ANSWERED. PATIENT UP TO BATHROOM INDEPENDENTLY TO VOID. PATIENT BACK TO BED. THIS ASKED PATIENT IF SHE HAS ANY PAIN, OR PAIN FROM REGULAR DIET YESTERDAY. PATIENT DENIES PAIN. NO FURTHER NEEDS. CALL LIGHT IN REACH.
[2024-03-12 05:32] LABS: BASOPHILS 0.5 % (0-2); EOSINOPHILS 3.9 % (0-6); HEMATOCRIT 22.7 % (35.0-50.0); HEMOGLOBIN 7.7 g/dL (12.0-18.0); LYMPHOCYTES 26.4 % (24-44); MCH 39.2 (27-36); MCHC 33.8 g/dl (30-36); MCV 115.9 fl (81-99); MONOCYTES 19.7 % (0-12); NEUTROPHILS 49.5 % (39-80); RBC 1.96 M/ul (4.3-5.7)
[2024-03-12 05:33] VITALS: BP 138/80
--- NOTE | 2024-03-12 05:45 | NUR ---
PATIENT ASKING HOW TO PLACE ORDER TO KITCHEN FOR BREAKFAST. THIS RN PROVIDED MENU AND EDUCATED PATIENT HOW TO ORDER FOOD. PATIENT VERBILIZED UNDERSTANDING. VS AND I&Os OBTAINED AND RECORDED. SCHEDULED MEDICATION ADMNISTERED. PATIENT DENIES NEEDS AT THIS TIME. FRESH WATER PROVIDED. CALL LIGHT IN REACH.
[2024-03-12 05:47] LABS: ALBUMIN 1.9 g/dL (3.4-5.0); ALBUMIN/GLOBULIN RATIO 0.5 (1.1-2.4); ANION GAP 12.3 (7-21); BUN/CREATININE RATIO 4.83 (6.0-28.6); CALCIUM 7.8 mg/dL (8.5-10.1); CREATININE, SERUM 0.62 mg/dL (0.55-1.02); MAGNESIUM 1.1 mg/dL (1.8-2.4); PHOSPHORUS, INORGANIC 4.7 mg/dL (2.5-4.9); PLATELET COUNT 49 K/uL (140-440); POTASSIUM 3.3 mmol/L (3.5-5.1); PROTEIN, TOTAL 5.7 g/dL (6.4-8.2)
[2024-03-12 05:52] VITALS: BP 138/80
--- NOTE | 2024-03-12 07:59 | NUR ---
PATIENT RESTING IN CHAIR AT THIS TIME. CALL LIGHT WITHIN REACH, NO FURTHER NEEDS AT THIS TIME.
[2024-03-12] MEDS ORDERED: MAGNESIUM SULFATE 2 GM/50 ML BAG IV SCH (08:00)
[2024-03-12] MEDS ORDERED: POTASSIUM CHLORIDE 40 MEQ,LIDOCAINE HCL 1% 40 MG in DEXTROSE 5% 250 ML IV ONE (08:00)
[2024-03-12 09:41] VITALS: BP 153/86
--- NOTE | 2024-03-12 10:00 | NUR ---
PATIENT IN CHAIR AT THIS TIME. VITALS AND I&O'S CHARTED. CALL LIGHT WITHIN REACH, NO FURTHER NEEDS AT THIS TIME.
[2024-03-12] MEDS ORDERED: POTASSIUM CHLORIDE 10 MEQ TABCR PO ONE (10:30)
--- NOTE | 2024-03-12 10:35 | NUR ---
PT UP TO CHAIR AWAKE, DENIES PAIN, NAUSEA, OR SOB. TELE REMAINS IN PLACE. L HAND EDEMA DECREASED TO TRACE AMOUNT. PT NOT WEARING SCDs D/T WALKING AROUND. PT CONTINUES TO HAVE MINIMAL DISTENTION AND TENDERNESS TO ABDOMEN, BOWEL TONES ACIVE. PT EXPRESSES ANXIETY SURROUNDING BILLS FOR HOSPITAL STAY AND PRESCRIPTIONS. CASE MANAGEMENT CONTACTED AND UPDATED. PT STATES NO FURTHER NEEDS AT THIS TIME. CALL LIGHT WITHIN REACH.
--- NOTE | 2024-03-12 10:45 | NUR ---
Spoke with pt. She denies needs plans on dc to home today.
--- NOTE | 2024-03-12 11:05 | NUR ---
CASE MANAGEMENT TO BEDSIDE. PT UP TO CHAIR, CALL LIGHT WITHIN REACH.
[2024-03-12] MEDS ORDERED: SUCRALFATE1 GM PO (11:26)
[2024-03-12] MEDS ORDERED: VITAMIN B-1100 MG PO (11:27)
[2024-03-12] MEDS ORDERED: PROTONIX40 MG PO (11:28)
[2024-03-12] MEDS ORDERED: MAG-TAB SR84 MG PO (11:28)
[2024-03-12] MEDS ORDERED: POTASSIUM CHLO20 ME1 PO (11:29)
--- NOTE | 2024-03-12 11:30 | NUR ---
Requested by pts Rn to return to room and speak with pt. Pt is extremely anxious. In and spoke with pt and she is near tears several times during the conversation. Pt is concerned her insurance will not cover her stay. She believes her insurance may have been down graded. I let her know we have not recieved a denial from her insurance. When she receives a bill she can fill out a financial assistance form if she has difficulty pay her bill. Pt is very anxious and close to tears. I asked pt what had caused her to be so upset and she could not say. I asked if she has depression and she does, she also sees a counselor weekly. I asked if I could schedule an appt for her to see and she does not want to give out their name. She states she will schedule when she gets home. She states Dr. Erazo agreed to order her an antidepressant. Pt stating I just sit around the house, Im not working. Her works long shifts and will not be home until around 8. I asked if I can call a friend to stay with her until her spouse gets home and she declined. I asked pt if she ever thinks about suicide. She states, "I'm to scared." I asked again if she is suicidal and she shrugged her shoulders and states, "I wouldn't do it". Pt is upset as she planned on leaving by 9am this morning and plans were changed due to emergency pt on the floor. was not able to see pt first and then pt need K and MG IV. Pt stating she is ok and will go home by taxi when IV's are complete. I confirmed with Dr. Erazo he is ordering her an antidepressant. Pt will discharge when IV's complete.
[2024-03-12] MEDS ORDERED: CITALOPRAM HBR20 MG PO (11:33)
[2024-03-12] MEDS ORDERED: PANTOPRAZOLE SODIUM 40 MG TABEC PO ONE (11:45)
--- NOTE | 2024-03-12 12:46 | NUR ---
PT WALKING AROUND UNIT INDEPENDENTLY. STATES NO NEEDS AT THIS TIME.
== END 2024-03-12 12:58 | disposition home or self-care (01) | DRG 377 ==
LOC: ED 17:37 → CCU 17:38 → MS 03-11 15:17
PROVIDERS: Emergency Medicine; Internal Medicine; ADMIT Family Medicine; ATTEND Family Medicine
PROC: 0DB78ZX Excision of Stomach, Pylorus, Via Natural or Artificial Opening Endoscopic, Diagnostic (ICD-10-PCS; principal; 2024-03-10)
DX: K25.4 Chronic or unspecified gastric ulcer with hemorrhage (principal); K21.01 Gastro-esophageal reflux disease with esophagitis, with bleeding; E87.20 Acidosis, unspecified; F10.939 Alcohol use, unspecified with withdrawal, unspecified; D69.6 Thrombocytopenia, unspecified; E87.6 Hypokalemia; E83.39 Other disorders of phosphorus metabolism; E86.0 Dehydration; K29.71 Gastritis, unspecified, with bleeding; I10 Essential (primary) hypertension; E83.42 Hypomagnesemia; K70.30 Alcoholic cirrhosis of liver without ascites; D64.9 Anemia, unspecified; F32.A Depression, unspecified; K44.9 Diaphragmatic hernia without obstruction or gangrene; Z71.6 Tobacco abuse counseling; Z86.010 Personal history of colon polyps; Z90.49 Acquired absence of other specified parts of digestive tract; Z98.890 Other specified postprocedural states; Z87.891 Personal history of nicotine dependence
CPT/HCPCS: 00813; 36415; 36592; 71045; 80048; 80053; 81001; 82140; 83605; 83690; 83735; 84100; 84703; 85014; 85018; 85025; 85060; 85610; 86850; 86900; 86901; 87077; 96366; 96372; 96375; 96376; 97116; 97162; 97165; 97530; A9270; G0378; G0480; J0696; J0780; J2001; J2060; J2405; J2470; J2704; J3411; J3420; J3430; J3475; J3480; J3490; J7030; J7040; J7060; J7121

== ENCOUNTER 2024-03-22 09:56 | Inpatient (IN) | payer BC ==
[~2024-03-22] VITALS: Ht 170.2 cm; Wt 63.3 kg
[~2024-03-22 09:56] MED LIST changes: +BUPROPION HCL150 MG PO; +CITALOPRAM HBR20 MG PO; +LEVETIRACETAM500 MG PO; +MAG-TAB SR84 MG PO; +POTASSIUM CHLO20 ME1 PO; +PROTONIX40 MG PO; +SUCRALFATE1 GM PO; +VITAMIN B-1100 MG PO; +VITAMIN D21250 MCG PO
--- OUTSIDE RECORDS SUMMARY | 2024-03-22 09:59 | XMS ---
PreManage Notification: RANDY CALDWELL Security Neuro Urologist Events No recent Security Events currently on file CRITERIA MET - [facility] - 2 Visits in 30 Days CARE PROVIDERS There are no care providers on record at this time. Jesus has no Care Guidelines for this patient. Carol VISIT COUNT (12 MO.) 2 [facility] T[facility] NOTE: Visits indicate total known visits. ED/C VISIT TRACKING (12 MO.) 03/22/2024 09:[address] [facility] TYPE: Emergency COMPLAINT: - ALTERED STATUS 03/08/2024 17:37 [facility] TYPE: Emergency COMPLAINT: - VOMITING INPATIENT VISIT TRACKING (12 MO.) 03/09/2024 08:25 [facility] TYPE: Medical Surgical COMPLAINT: - DEHYDRATION,HYPOKALEMIA,ETOH WITHDRAWEL DIAGNOSES: - Acidosis, unspecified - Acidosis, unspecified - Acquired absence of other specified parts of digestive tract - Acquired absence of other specified parts of digestive tract - Alcohol use, unspecified with withdrawal, unspecified - Alcohol use, unspecified with withdrawal, unspecified - Alcoholic cirrhosis of liver without ascites - Alcoholic cirrhosis of liver without ascites - Anemia, unspecified - Anemia, unspecified - Chronic or unspecified gastric ulcer with hemorrhage - Chronic or unspecified gastric ulcer with hemorrhage - Dehydration - Dehydration - Depression, unspecified - Depression, unspecified - Diaphragmatic hernia without obstruction or gangrene - Diaphragmatic hernia without obstruction or gangrene - Essential (primary) hypertension - Essential (primary) hypertension - Gastritis, unspecified, with bleeding - Gastritis, unspecified, with bleeding - Gastro-esophageal reflux disease with esophagitis, with bleeding - Gastro-esophageal reflux disease with esophagitis, with bleeding - Gastrointestinal hemorrhage, unspecified - Hypokalemia - Hypokalemia - Hypomagnesemia - Hypomagnesemia - Other disorders of phosphorus metabolism - Other disorders of phosphorus metabolism - Other specified postprocedural states - Other specified postprocedural states - Personal history of colonic polyps - Personal history of colonic polyps - Personal history of nicotine dependence - Personal history of nicotine dependence - Thrombocytopenia, unspecified - Thrombocytopenia, unspecified - Tobacco abuse counseling - Tobacco abuse counseling [email or web address]
[2024-03-22] MEDS ORDERED: SODIUM CHLORIDE 0.9% 1,000 ML IV PRN (10:30)
[2024-03-22 10:38] LABS: HEMATOCRIT 31.9 % (35.0-50.0); HEMOGLOBIN 10.3 g/dL (12.0-18.0); MCH 35.2 (27-36); MCHC 32.3 g/dl (30-36); MCV 108.9 fl (81-99); PLATELET COUNT 178 K/uL (140-440); RBC 2.93 M/ul (4.3-5.7); RDW 16.3 (10.5-15.0)
[2024-03-22 10:58] LABS: ALBUMIN 2.5 g/dL (3.4-5.0); ALBUMIN/GLOBULIN RATIO 0.52 (1.1-2.4); ALCOHOL, MEDICAL <3 ng/dL (<3); ALKALINE PHOSPHATASE 105 U/L (46-116); ALT (SGPT) 27 U/L (14-59); ANION GAP 11.7 (7-21); AST (SGOT) 50 U/L (15-37); BILIRUBIN, TOTAL 2.1 ng/dL (0.2-1.0); BUN/CREATININE RATIO 6.59 (6.0-28.6); CALCIUM 8.6 mg/dL (8.5-10.1); CARBON DIOXIDE 25 mmol/L (21-32); CHLORIDE 99 mmol/L (98-107); CREATININE, SERUM 0.91 mg/dL (0.55-1.02); GLOMERULAR FILTRATION RATE,EST 74 mL/min (>60); POTASSIUM 3.7 mmol/L (3.5-5.1); PROTEIN, TOTAL 7.3 g/dL (6.4-8.2); UREA NITROGEN 6 mg/dL (7-18)
[2024-03-22 11:00] LABS: BASOPHILS, MANUAL DIFF 1; LYMPHOCYTES, MANUAL DIFF 11; MONOCYTES, MANUAL DIFF 15; NEUTROPHILS, MANUAL DIFF 73
[2024-03-22] MEDS ORDERED: MAGNESIUM SULFATE 2 GM/50 ML BAG IV ONE ×2 (12:45→17:45)
[2024-03-22] MEDS ORDERED: HYDROmorphone HCL 1 MG/ML SYR IV ONE (13:15)
[2024-03-22] MEDS ORDERED: ONDANSETRON 4 MG TAB ODT SL ONE (13:15)
[2024-03-22 14:05] LABS: BILIRUBIN, URINE NEGATIVE (negative); BLOOD/HGB, URINE NEGATIVE (Negative); KETONE, URINE TRACE (Negative); LEUK ESTERASE, URINE TRACE (negative); NITRITE, URINE POSITIVE (negative)
[2024-03-22] MEDS ORDERED: CEFTRIAXONE/SODIUM CHLORIDE 1 GM/100 ML PIGGYBACK IV ONE (14:15)
[2024-03-22 14:17] LABS: EPITHELIAL CELLS, URINE SQUAMOUS 1+ /lpf (0-1+)
[2024-03-22 14:18] LABS: BACTERIA, URINE 4+ /hpf (negative); CASTS, URINE NONE SEEN \\lpf; COLLECTION TYPE, URINE CLEAN CATCH; CRYSTALS, URINE NONE SEEN (0-1+); RED BLOOD CELLS, URINE 0-1 /hpf (0-5); REFLEX CULTURE, URINE Yes (No); WHITE BLOOD CELLS, URINE 21-40 /HPF (0-5)
[2024-03-22 14:44] LABS: AMPHETAMINES, URINE NEGATIVE (NEGATIVE); BARBITURATES, URINE NEGATIVE (NEGATIVE); BENZODIAZEPINE, URINE NEGATIVE (NEGATIVE); BUPRENORPHINE, URINE NEGATIVE (NEGATIVE); CANNABINOID, URINE POSITIVE (NEGATIVE); COCAINE, URINE NEGATIVE (NEGATIVE); ECSTASY, URINE POSITIVE (NEGATIVE); FENTANYL, URINE NEGATIVE (NEGATIVE); METHADONE, URINE NEGATIVE (NEGATIVE); OPIATES, URINE POSITIVE (NEGATIVE); OXYCODONE, URINE NEGATIVE (NEGATIVE); PHENCYCLIDINE, URINE NEGATIVE (NEGATIVE)
[2024-03-22] MEDS ORDERED: FOLIC ACID 1 MG TAB PO SCH (15:43)
[2024-03-22 16:04] VITALS: BP 118/64
--- NOTE | 2024-03-22 16:21 | NUR ---
PT TO FLOOR AT 1551, THIS RN TO BEDSIDE AT 1605. PT STATES PAIN IS 0/10 AT THE MOMENT WHILE LYING IN BED. PT DISORIENTED TO DATE AND TIME, STATES IT IS SATURDAY THE 2004. PT REORIENTED, PT STATES "I WILL PROBABLY FORGET". PT STATES TOES ARE NUMB AND TINGLING, BUT INTACT SENSATION IN ALL OTHER AREAS. PT STATES SHE HAS NOT DRANK ALCOHOL SINCE SHE WAS LAST ADMITTED APPROXIMATELY 2 WEEKS AGO, HAS BEEN DOING TRUE OUTPATIENT TREATMENT. PT FORGETFUL AND CONFUSED AT TIMES DURING ADMISSION PROCESS. PT ABLE TO ANSWER ADMISSION QUESTIONS APPROPRIATELY. PT STATES NO CURRENT NEEDS, CALL LIGHT WITHIN REACH. BED ALARM ON FOR SAFETY. PT TAKES PO MEDICATION W/O DIFFICULTY.
[2024-03-22] MEDS ORDERED: THIAMINE HCL 200 MG/2 ML VIAL IV SCH (16:45)
[2024-03-22] MEDS ORDERED: THIAMINE HCL 500 MG in DEXTROSE 5% 100 ML IV SCH ×2 (16:53→21:00)
[2024-03-22 18:09] LABS: TSH, 3RD GENERATION 5.04 uIU/mL (0.358-3.740)
[2024-03-22 18:32] VITALS: BP 117/64
[2024-03-22 18:44] VITALS: BP 117/64
--- NOTE | 2024-03-22 18:47 | EKG ---
[facility] [address] [facility] [place] [address] Signed Normal sinus rhythm Nonspecific T wave abnormality Prolonged QT Abnormal ECG When compared with ECG of 02-AUG-2021 17:49, Nonspecific T wave abnormality, worse in Anterolateral leads Confirmed by Dmitry Sampson MD ([id number]) on 03/22/2024 6:46:59 PM Electronically Signed By: DMITRY SAMPSON MD 03/22/24 1847 PATIENT NAME: JAVIRANDY Electrocardiogram DATE OF : 69 PHYSICIAN: DMITRY SAMPSON MD REPORT #: [id number] REPORT IS CONFIDENTIAL AND NOT TO BE RELEASED WITHOUT AUTHORIZATION
--- NOTE | 2024-03-22 19:39 | NUR ---
REPORT RECEIVED FROM DAY SHIFT RN. PT LYING IN BED ALERT. ASSISTED TO REPOSITION. DENIES NEEDS. WHITE BOARD UPDATED. BED ALARM FOR SAFETY. CALL LIGHT IN REACH.
[2024-03-22 20:20] VITALS: BP 112/59
[2024-03-22 20:21] VITALS: BP 112/59
--- NOTE | 2024-03-22 20:43 | NUR ---
EVENING ASSESSMENT COMPLETE. EVENING MEDICATIONS ADMIN PER EMAR. PT ALERT AND ORIENTED X 3. VS AND I&O OBTAINED. PT DENIES NEEDING TO VOID AT THIS TIME. PT RESTLESS IN BED SETTING OFF THE BED ALARM MULTIPLE TIMES. TREMORS NOTED IN BUE. PT STATES CHRONIC. OCCASIONAL BACK SPASMS WITH MOVEMENT NOTED. ASSISTED PT TO REPOSITION. PT DENIES QUESTIONS OR CONCERNS. CALL LIGHT IN REACH. BED ALARM FOR SAFETY.
[2024-03-22] MEDS ORDERED: buPROPion HCL 150 MG TABCR PO SCH (21:00)
[2024-03-22] MEDS ORDERED: levETIRAcetam 500 MG TAB PO SCH (21:00)
[2024-03-22] MEDS ORDERED: MELATONIN 3 MG TAB PO PRN (21:00)
--- NOTE | 2024-03-22 23:20 | NUR ---
BED ALARMING. PATIENT STATED WANT TO USE THE BATHROOM. APPLE PEELER OPERATOR AND THIS TALENT BUYER HELPED PATIENT USE THE BEDSIDE COMMODE. PATIENT IS UNSTABLE ON HER FEET. PATIENT HOLD ON TO THE STAFF'S ARMS TO BE ABLE TO STAND UP AND MAKE STEPS. PATIENT IS WOBBLY. PATIENT IS BACK IN BED. BED ALARM ON FOR SAFETY.
[2024-03-23] VITALS (9 sets, daily range): BP systolic 112–136; BP diastolic 60–86
--- NOTE | 2024-03-23 00:55 | NUR ---
BED ALARMING. THIS POINTING MACHINE OPERATOR IN TO THE ROOM. PATIENT IS ALREADY OUT OF THE BED STATING IM GOING TO THE BATHROOM. PATIENT HAS UNSTABLE GAIT. PRIMARY RN CAME TO HELP. PATIENT VOIDED UN MEASURED. PATIENT IS BACK IN BED. BED ALARM ON. V/S AND OUTPUT TAKEN AND RECORDED.
--- NOTE | 2024-03-23 01:04 | NUR ---
PT OOB TO VOID AN UNMEASURED CONCENTRATED AMOUNT. ABLE TO DO OWN CLARISA CARE AND WASH HANDS AT SINK. BACK TO BED. GAIT UNSTEADY. PT HAS DIFFICULTY FOLLOWING DIRECTIONS AND MOVEMENT IS UNCOORDINATED. DENIES FURTHER NEEDS. BED ALARM FOR SAFETY. CALL LIGHT IN REACH.
--- NOTE | 2024-03-23 03:00 | NUR ---
PT RESTING IN BED WITH EYES CLOSED. RESPIRATIONS EVEN. CALL LIGHT IN REACH.
--- NOTE | 2024-03-23 04:21 | NUR ---
BED ALARM SOUNDING. PT UP TO BR WITH 2PA TO VOID. BACK TO BED, KAIDEN FAIR. PT MOVEMENT UNCOORDINATED AND GAIT UNSTEADY. A&O X 3. NO FURTHER NEEDS. BED ALARM FOR SAFETY. CALL LIGHT IN REACH.
[2024-03-23 05:41] LABS: HEMATOCRIT 29.2 % (35.0-50.0); HEMOGLOBIN 9.6 g/dL (12.0-18.0); MCH 35.5 (27-36); MCHC 32.8 g/dl (30-36); MCV 108.2 fl (81-99); PLATELET COUNT 152 K/uL (140-440); RDW 15.9 (10.5-15.0)
[2024-03-23 05:57] LABS: ALBUMIN 2.3 g/dL (3.4-5.0); ALBUMIN/GLOBULIN RATIO 0.55 (1.1-2.4); ANION GAP 12.4 (7-21); BILIRUBIN, TOTAL 1.6 ng/dL (0.2-1.0); BUN/CREATININE RATIO 5.55 (6.0-28.6); CALCIUM 7.6 mg/dL (8.5-10.1); CREATININE, SERUM 0.72 mg/dL (0.55-1.02); MAGNESIUM 1.9 mg/dL (1.8-2.4); POTASSIUM 3.4 mmol/L (3.5-5.1); PROTEIN, TOTAL 6.5 g/dL (6.4-8.2)
[2024-03-23 06:04] LABS: BASOPHILS, MANUAL DIFF 2; LYMPHOCYTES, MANUAL DIFF 17; MONOCYTES, MANUAL DIFF 12; NEUTROPHILS, MANUAL DIFF 69
[2024-03-23] MEDS ORDERED: HYDROmorphone HCL 1 MG/ML SYR IV ONE (06:30)
--- NOTE | 2024-03-23 06:35 | NUR ---
CALL LIGHT ANSWERED. PT REPORTS 10/10 LEFT SIDE/BACK PAIN. NO PRN'S AVAILABLE. MD NOTIFIED. NEW TELEPHONE ORDER RECEIVED VERIFIED WITH READBACK METHOD. MEDS ADMIN PER EMAR. WARM COMPRESS PROVIDED. NO FURTHER NEEDS. CALL LIGHT IN REACH. BED ALARM FOR SAFETY.
--- NOTE | 2024-03-23 07:25 | NUR ---
REPORT RECIEVED FROM RON FLANAGAN. PT AWAKE AND RESTING IN BED. DENIES ANY NEEDS AT THIS TIME, CALL LIGHT IN REACH
[2024-03-23] MEDS ORDERED: THIAMINE HCL 100 MG TAB PO SCH (08:00)
--- NOTE | 2024-03-23 08:14 | NUR ---
PT SITTING UPRIGHT IN BED TO TAKE PILLS. CRYING OUT IN PAIN ON LEFT FLANK AREA. STATES IT IS MOVING AROUND TO THE FRONT UNDER THE RIBS. GIVEN HOT PACK, BREAKFAST ON BEDSIDE TABLE. TOOK MEDS WO DIFF.
--- NOTE | 2024-03-23 08:26 | NUR ---
SHIFT ASSESSMENT COMPLETE. PT C/O 04/23 PAIN L. FLANK/ EPIGASTRIC REGION. HEAT PACK PROVIDED. STATES THAT SHE IS IN "[place]". 16 ON ALCOHOL WITHDRAWAL ASSESSMENT. MEDICATIONS ADMIN PER EMAR. DECLINES BREAKFAST AT THIS TIME. DENIES ANY NEEDS AT THIS TIME, CALL LIGHT IN REACH
[2024-03-23] MEDS ORDERED: POTASSIUM CHLORIDE 10 MEQ TABCR PO ONE (09:00)
[2024-03-23] MEDS ORDERED: PANTOPRAZOLE SODIUM 40 MG TABEC PO SCH (09:00)
[2024-03-23] MEDS ORDERED: ENOXAPARIN SODIUM 40 MG/0.4 ML SYR SUB-Q SCH (09:00)
--- NOTE | 2024-03-23 09:35 | NUR ---
UR CLINICAL REVIEW: [facility] PPO INPT 03/22/24 @1535 ORDER MATCHES REG WILL SEND CLINICAL FOR AUTH REVIEW AFTER NOTIFICATION IS COMPLETE DISCHARGE TO HOME WHEN STABLE 03/25/24
--- NOTE | 2024-03-23 09:39 | NUR ---
PT NOT AVAILABLE FOR VISIT. PROVIDED PRAYER.
--- NOTE | 2024-03-23 09:55 | NUR ---
IVF INFUSING PER EMAR. PT STARTLES EASILY. GRIMACES AND MOANS WHEN AWAKE. PT MUMBLING NONSENSICALLY. ALERT TO SELF AND ENVIRONMENT WHEN AWAKE.
[2024-03-23] MEDS ORDERED: HYDROmorphone HCL 1 MG/ML SYR IV PRN (10:15)
--- NOTE | 2024-03-23 10:28 | NUR ---
PT RESTING IN BED. MOANS WHEN AWAKE. FAMILY IN ROOM. IV DILAUDID ADMIN PER EMAR. DENIES ANY NEEDS AT THIS TIME, CALL LIGHT IN REACH
--- NOTE | 2024-03-23 10:43 | NUR ---
PT WENT TO CT BY WC.
[2024-03-23] MEDS ORDERED: PHARMACY RENAL DOSE ADJUSTMENT 1 DOSE MISC PO SCH (12:00)
--- NOTE | 2024-03-23 12:04 | NUR ---
RESTING IN BED, EYES ARE CLOSED. PATIENT WOKE UP WHEN THE LICENSE ISSUER WALKED INTO THE PATIENT'S ROOM. PATIENT IS HAVING MUSCLE CRAMPS THAT COME AND GO. PATIENT WANTS TO GO HOME WITH HER WHEN DISCHARGED. PATIENT WAS GIVEN A TRUE CARD AND ENCOURGED PATIENT TO CALL. PATIENT STATES "MAYBE". PATIENT HAS NO MONEY ISSUES AND CAN AFFORD HOUSING AND FOOD. PATIENT DOES NOT USE DME. PATIENT'S DEMOGRAPHICS ARE CORRECT. PATIENT HAS FAMILY THAT IS WILLING TO HELP NEEDED. PATIENT DOES NOT WANT TO TALK ANYMORE.
--- NOTE | 2024-03-23 12:50 | NUR ---
PT SITTING UP IN CHAIR. CALL LIGHT IN REACH
--- NOTE | 2024-03-23 12:58 | NUR ---
PT UP TO BR. 1 PA. UNSTEADY GAIT, BACK TO BED. BED ALARM SET. DENIES ANY NEEDS, CALL LIGHT IN REACH
--- NOTE | 2024-03-23 14:03 | NUR ---
PT ASSESSMENT COMPLETE. PT GROANING AND MUMBLING. PT C/O 04/23 PAIN. HEAT PACK PROVIDED. PT RESTING IN BED. WHEN ASKED WHAT THE YEAR WAS, SHE STATES "2001" REORIENTED TO DATE. BED ALARM ON. DENIES ANY NEEDS AT THIS TIME, CALL LIGHT IN REACH
--- NOTE | 2024-03-23 14:08 | NUR ---
PT BED ALARM GOING OFF. PT MUMBLING. PT REORIENTED. NOW BACK IN BED, BED ALARM ON. BOOK PROVIDED FOR HER TO READ. DENIES ANY NEEDS, CALL LIGHT IN REACH
--- NOTE | 2024-03-23 14:15 | NUR ---
PLASMA SPECIALIST PER EMAR. PT DENIES ANY FURTHER NEEDS, CALL LIGHT IN REACH
--- NOTE | 2024-03-23 15:01 | NUR ---
PT RESTING IN BED. BED ALARM ON, CALL LIGHT IN REACH
--- NOTE | 2024-03-23 15:30 | NUR ---
PT SLEEPING IN BED AFTER PAIN MEDS. ADMINISTERED THIAMINE PER EMAR. COVERED WITH BLANKET. APPEARS COMFORTABLE.
[2024-03-23] MEDS ORDERED: CEFTRIAXONE/SODIUM CHLORIDE 1 GM/100 ML PIGGYBACK IV SCH (16:00)
--- NOTE | 2024-03-23 16:37 | NUR ---
IV ABX RUNNING PER EMAR. AT BEDSIDE. UPDATE GIVEN TO HIM. PT AWAKE AND RESTING IN BED. DENIES ANY NEEDS, CALL LIGHT IN REACH
--- NOTE | 2024-03-23 17:25 | NUR ---
BED ALARM GOING OFF. SN BETTY AND DAVE HORNER IN ROOM TO ASSIST. 2 PA W FWW; PT NOT ABLE TO UTILIZE WALKER PROPERLY. UNSTEADY GAIT. PT BACK TO CHAIR. DISORIENTED TO DATE AND LOCATION. SHE STATES THE YEAR IS "2001" AND SHE IS IN "[place], [place]". PT C/O PAIN. GRIMACING. MUMBLING HER WORDS. DECLINES USE OF DISTRACTION OR HEAT PACK. DENIES ANY NEEDS AT THIS TIME, CALL LIGHT IN REACH.
--- NOTE | 2024-03-23 17:45 | NUR ---
medications reconciled using pharmacy records
--- NOTE | 2024-03-23 19:17 | NUR ---
REPORT RECEIVED FROM DAY SHIFT RN. PT LYING IN BED RESTING WITH EYES CLOSED. RESPIRATIONS EVEN. BED ALARM FOR SAEFTY. CALL LIGHT IN REACH. WHITE BOARD UPDATED.
--- NOTE | 2024-03-23 22:52 | NUR ---
PT RESTING WITH EYES CLOSED. AWAKENS TO VOICE. PT MUMBLES INCOHERENTLY AT TIMES AND ANSWERS QUESTIONS APPROPRIATELY AT OTHERS. UP TO BSC WITH 2PA. GAIT UNSTEADY. PT ABLE TO DO WON CLARISA CARE. BACK TO BED. PT MOVEMENT UNCOORDINATED AND HAS DIFFICULTY FOLLOWING DIRECTIONS. INCREASED SPASMS IN ARMS AND LEGS AND PAIN NOTED WITH MOVEMENT. PT REPORTS PAIN FROM LEFT SIDE OF NECK THAT RADIATES DOWN AND ENDS ON RIGHT SIDE OF HER ABDOMEN 03/24. PRN FOR PAIN ADMIN PER EMAR. ASSISTED PT TO REPOSITION. NO FURTHER NEEDS. BED ALARM FOR SAFETY. CALL LIGHT IN REACH.
--- NOTE | 2024-03-23 23:46 | NUR ---
PT RESTING IN BED WITH EYES CLOSED. RESPIRATIONS EVEN. BED ALARM FOR SAFETY. CALL LIGHT IN REACH.
[2024-03-24] VITALS (11 sets, daily range): BP systolic 112–137; BP diastolic 50–84
--- NOTE | 2024-03-24 01:21 | NUR ---
PT HEARD CALLING OUT AND CRYING FROM NURSES STATION. PT FOUND TO BE HOLDING LEFT SIDE RATING PAIN 5/10. NO PRN'S AVAILABLE. NOTIFIED. NEW TELEPHONE ORDERS RECEIVED VERIFIED WITH READBACK METHOD.
[2024-03-24] MEDS ORDERED: CYCLOBENZAPRINE HCL 10 MG TAB PO PRN (01:30)
[2024-03-24] MEDS ORDERED: HYDROmorphone HCL 1 MG/ML SYR IV PRN (01:30)
--- NOTE | 2024-03-24 01:40 | NUR ---
PT CONTINUES TO HOLD LEFT LATERAL SIDE WHILE MOANING/CRYING AND SHIFTING IN BED. PT ROLLING BACK IN FORTH IN BED, PULLING LEGS UP. AT ONE POINT PT STATES "I FELT A POP." VS OBTAINED, WNL. ASSESSMENT UNCHANGED. PRN FOR PAIN ADMIN PER EMAR. BED ALARM IN PLACE. CALL LIGHT IN REACH.
--- NOTE | 2024-03-24 02:25 | NUR ---
PT RESTING IN BED IN RELAXED POSITION AT THIS TIME. RESPIRATIONS EVEN. BED ALARM IN PLACE.
--- NOTE | 2024-03-24 03:41 | NUR ---
PT HEARD MOANING FROM NURSES STATION. REPORTS LEFT SIDE PAIN 01/21. PRN FOR PAIN ADMIN PER EMAR.
[2024-03-24 05:36] LABS: FOLATE,SERUM 15.2 ng/mL (>=5.9)
--- NOTE | 2024-03-24 05:40 | NUR ---
LAB IN ROOM FOR MORNING DRAW. VS OBTAINED. UP TO BSC WITH 2PA TO VOID 350 ML ORANGE COLORED URINE. PT ABLE TO DO OWN CLARISA CARE. BACK TO BED, KAIDEN FAIR. INCREASED PAIN AND SPASMS WITH MOVEMENT. MOVEMENTS REMAIN UNCOORDINATED AND JERKY. SIPS OF WATER PROVIDED. PT REMAINS WELL WITHIN 2000 ML FLUID RESTRICTION. PT DENIES FURTHER NEEDS. BED ALARM FOR SAFETY. CALL LIGHT IN REACH.
[2024-03-24 05:43] LABS: HEMATOCRIT 30.6 % (35.0-50.0); HEMOGLOBIN 9.8 g/dL (12.0-18.0); MCH 35.2 (27-36); MCHC 31.9 g/dl (30-36); MCV 110.4 fl (81-99); PLATELET COUNT 158 K/uL (140-440); RBC 2.77 M/ul (4.3-5.7); RDW 16.1 (10.5-15.0)
[2024-03-24 05:58] LABS: BASOPHILS, MANUAL DIFF 1; EOSINOPHILS, MANUAL DIFF 4; LYMPHOCYTES, MANUAL DIFF 19; MONOCYTES, MANUAL DIFF 9; NEUTROPHILS, MANUAL DIFF 67
[2024-03-24 05:59] LABS: ALBUMIN 2.3 g/dL (3.4-5.0); ALBUMIN/GLOBULIN RATIO 0.51 (1.1-2.4); ANION GAP 11.9 (7-21); BILIRUBIN, TOTAL 1.4 ng/dL (0.2-1.0); BUN/CREATININE RATIO 4.68 (6.0-28.6); CALCIUM 8.1 mg/dL (8.5-10.1); CREATININE, SERUM 0.64 mg/dL (0.55-1.02); MAGNESIUM 1.7 mg/dL (1.8-2.4); POTASSIUM 3.9 mmol/L (3.5-5.1); PROTEIN, TOTAL 6.8 g/dL (6.4-8.2)
--- NOTE | 2024-03-24 06:17 | NUR ---
PT LYING IN BED IN RELAXED POSITION. EYES CLOSED. RESPIRATIONS EVEN.
--- NOTE | 2024-03-24 07:00 | NUR ---
PT ROLLED UP ONTO RIGHT SIDE MOANING AND HOLDING LEFT SIDE. REPORTS PAIN 10/10. PRN FOR PAIN ADMIN PER EMAR.
--- NOTE | 2024-03-24 07:22 | NUR ---
PT RESTING SOUNDLY AT TIME OF SHIFT REPORT, LEFT UNDISTURBED. BED ALARM IS SET, CALL LIGHT AND NEEDED ITEMS AT BEDSIDE.
--- NOTE | 2024-03-24 07:35 | NUR ---
PATIENT IN BED AT THIS TIME. BEADING MACHINE OPERATOR WENT INTO PATIENT ROOM TO DO HOURLY ROUNDS. CALL LIGHT WITHIN REACH, NO FURTHER NEEDS AT THIS TIME.
--- NOTE | 2024-03-24 08:16 | NUR ---
PATIENT IN CHAIR AT THIS TIME. ASSISTANT PROGRAM DIRECTOR ASSISTED PATIENT IN AMBULATING TO THE CHAIR. PATIENT USED FRONT WHEELED WALKER. CALL LIGHT WITHIN REACH, NO FURTHER NEEDS AT THIS TIME.
--- NOTE | 2024-03-24 08:22 | NUR ---
PT IS UP TO THE CHAIR FOR MORNING MEAL, DENIES HUNGER. IS PRESENT REQUESTS TO SEE DR TRAYLOR FOR QUESTIONS HE HAS. DR TRAYLOR TO THE ROOM NOW TO ASSESS PT AND ANSWER QUESTIONS, PLAN FORWARD DISCUSSED AT LENGTH ALL QUESTIONS ANSWERED
[2024-03-24] MEDS ORDERED: MAGNESIUM SULFATE 2 GM/50 ML BAG IV ONE (09:00)
[2024-03-24] MEDS ORDERED: FENTANYL 12 MCG/HR 1 EA TDSY TD ONE (09:30)
--- NOTE | 2024-03-24 09:47 | NUR ---
FLEXARIL GIVEN AT TIME OF HILBORNS VISIT PT DENIES ANY RELIEF. SHE IS SITTING UP IN THE CHAIR HOLDING HER BACK GROANING INTERMITTANTLY AND ROCKING. FENT PATCH APPLIED PER ORDERS DILAUDID GIVEN IV FOR IMMEDIATE RELIEF FENT TAKES TIME TO WORK. PT AGREES THIS HAS HELPED HER SOMEWHAT. CURRENTLY PT IS NO LONGER HOLDING HER BACK AND RESTING BACK IN THE CHAIR FOR THE FIRST TIME SINCE BEING SEATED THERE. APPEARS TO HAVE OCCASSIONAL SPASMS THEN RELAXES FOR A TIME, ALLOWS THIS AUTOCAD OPERATOR TO RECLNE THE CHAIR PILLOW PLACED FOR COMFORT. CHAIR ALARM IS SET, NEEDED ITEMS IN REACH
--- NOTE | 2024-03-24 10:28 | NUR ---
PT BACK FROM IMAGING. REATTATCHED TO IV INFUSION. PT TOLERATED WELL. PT REMAINS SOLMULENT AND EYES MOSTLY CLOSED. STATES HER PAIN IN THE SIDE ISN'T BAD IF SHE DOESN'T MOVE.
--- NOTE | 2024-03-24 10:34 | NUR ---
PT SITTING IN CHAIR AGREES PAIN HAS IMPROVED. SHE APPEARS RELAXED FOR A TIME THEN HURTS FOR A FEW SECONDS AND RELAXES AGAIN. NO LONGER HOLDING CONSTANT PRESSURE TO HER BACK WITH HER HAND, DENIES NEEDS AT THIS TIME
--- NOTE | 2024-03-24 10:44 | NUR ---
PATIENT IN CHAIR AT THIS TIME. VITALS AND I&O'S CHARTED. COMPLAINT ADJUSTER PROVIDED FRESH LINENS. CALL LIGHT WITHIN REACH, NO FURTHER NEEDS AT THIS TIME.
--- NOTE | 2024-03-24 11:00 | NUR ---
Spoke with Porsche. She is able to answer 2 questions. Pt remains bewildered when asked questions. Pt is unable to answer most questions. Update from Dr. Erazo, pt does have fx ribs and this explains her severe pain. No plan for dc today.
--- NOTE | 2024-03-24 11:00 | NUR ---
VISITED DURING SPIRITUAL CARE ROUNDS. SHORT CONVERSATION PT RETICENT TO CONVERSE. INDUSTRIAL ROOFER PROVIDED SUPPORTIVE PRESENCE, HOSPITALITY, PRAYER.
--- NOTE | 2024-03-24 11:54 | NUR ---
PATIENT IN CHAIR AT THIS TIME. CALL LIGHT WITHIN REACH, NO FURTHER NEEDS AT THIS TIME.
--- NOTE | 2024-03-24 12:17 | NUR ---
PT UP IN THE CHAIR AWAKENS TO VOICE NOON MEAL SERVED. SHE SHOWS SOME INTREST IN EATING, BREAKFAST WAS REFUSED
--- NOTE | 2024-03-24 13:17 | NUR ---
SBAR REPORT RECEIVED FROM RON CUNHA. RANDY IS NOTED TO BE IN BED WITH EYES OPEN. SHE IS IMPULSIVE AND HAS BED ALARM ON. VSS PER MONITOR. FENTANYL PATCH ON FOR PAIN COMFORT AND CONTROL. SAFETY CHECK OF ROOM PERFORMED. NO ADDITIONAL NEEDS IDENTIFIED AT THIS TIME
--- NOTE | 2024-03-24 14:33 | NUR ---
PATIENT IN BED AT THIS TIME. CALL LIGHT WITHIN REACH, NO FURTHER NEEDS AT THIS TIME.
--- NOTE | 2024-03-24 15:35 | NUR ---
SPOUSE CARLOS IN ROOM WITH PATIENT RANDY. HE WAS UPDATED REGARDING PLAN OF CARE AND MEDICATIONS. ALL QUESTIONS AND CONCERNS WERE ADDRESSED. CARLOS STATED GRATITUDE FOR HIS SPOUSE'S CARE. RANDY IS NOTED TO BE RESTING IN BED WITH EYES CLOSED. SHE TALKS IN HER SLEEP AND SEEMS RESTLESS. REORIENTATION PROVIDED. RANDY ENDORSES NO NEEDS THIS HOUSE
--- NOTE | 2024-03-24 15:56 | NUR ---
PATIENT IN BED AT THIS TIME. CALL LIGHT WITHIN REACH, NO FURTHER NEEDS AT THI TIME.
--- NOTE | 2024-03-24 17:05 | NUR ---
PATIENT IN BED AT THIS TIME. CALL LIGHT WITHIN REACH, NO FURTHER NEEDS AT THIS TIME.
--- NOTE | 2024-03-24 17:25 | NUR ---
PATIENT RANDY CONTINUES TO REST WITH EYES CLOSED. SHE DOES NOT ENDORSE ANY DISCOMFORT AND HER SPEECH PATTER IS UNDERSTANDABLE. RANDY TOLD THIS RN A STORY ABOUT FINDING HER DOG
--- NOTE | 2024-03-24 18:21 | NUR ---
PATIENT IN BED AT THIS TIME. RELATIONSHIP MGR CHARTED VITALS AND I&O'S. CALL LIGHT WITHIN REACH, NO FURTHER NEEDS AT THIS TIME.
--- NOTE | 2024-03-24 19:42 | NUR ---
REPORT RECEIVED FROM DAY SHIFT RN. PT LYING IN BED RESTING WITH EYES CLOSED. AWAKENS EASILY. VERIFIED WITH DAY SHIFT RN FENTANYL PATCH IN PLACE ON UPPER RIGHT SHOULDER. PT DENIES NEEDS AT THIS TIME. WHITE BOARD UPDATED. CALL LIGHT IN REACH. BED ALARM FOR SAFETY.
--- NOTE | 2024-03-24 21:17 | NUR ---
PT IN TO VISIT. QUESTIONS ANSWERED. PT MORE ALERT THIS EVENING AND RESPONDS APPROPRIATELY TO QUESTIONS. SPEECH IS MORE CLEAR WELL. A&O X 3. EVENING ASSESSMENT COMPLETE. SCHEDULED MEDS ADMIN PER EMAR. 2PA TO BSC TO VOID SMALL AMOUNT AND HAVE SMALL SOFT BM. GAIT UNSTEADY. MOVEMENT UNCOORDINATED. TREMORS IN ARMS NOTED. PT ABLE TO FOLLOW DIRECTIONS MORE CLEARLY THIS EVENING THAN LAST. BACK TO BED, KAIDEN FAIR. REPORTS LEFT RIB PAIN 02/21. PRN FOR PAIN ADMIN PER EMAR. PT ABLE TO DRINK A CLEAR LIQUID ENSURE. NO FURTHER NEEDS. BED ALARM FOR SAFETY. CALL LIGHT IN REACH.
--- NOTE | 2024-03-24 23:40 | NUR ---
PT RESTING IN BED WITH EYES CLOSED. RESPIRATIONS EVEN. BED ALARM FOR SAFETY. CALL LIGHT IN REACH.
[2024-03-25] VITALS (10 sets, daily range): BP systolic 125–158; BP diastolic 56–76
--- NOTE | 2024-03-25 01:59 | NUR ---
PT IN BED RESTING WITH EYES CLOSED. OCCASIONAL TWITCHING MOVEMENTS NOTED IN BUE. BED ALARM FOR SAFETY. CALL LIGHT IN REACH.
[2024-03-25] MEDS ORDERED: SODIUM CHLORIDE 0.9% 1,000 ML IV SCH (02:45)
--- NOTE | 2024-03-25 02:46 | NUR ---
UPDATE PROVIDED TO . NEW TELEPHONE ORDERS RECEIVED VERIFIED WITH READBACK METHOD.
--- NOTE | 2024-03-25 03:14 | NUR ---
PT RESTING WITH EYES CLOSED. AWAKENS EASILY. UP TO BSC WITH 2PA TO VOID 200 ML. PT ABLE TO DO WON CLARISA CARE. BACK TO BED, KAIDEN FAIR. GAIT UNSTEADY. PT MOVEMENT UNCOORDINATED AND SHAKY. IVF INFUSING PER ORDER. CPOX PLACED. SIPS OF WATER PROVIDED. ASSESSMENT UNCHANGED. PT DENIES NEEDS. CALL LIGHT IN REACH. BED ALARM IN PLACE.
[2024-03-25 06:04] LABS: HEMATOCRIT 31.3 % (35.0-50.0); MCH 35.1 (27-36); MCV 109.7 fl (81-99); PLATELET COUNT 165 K/uL (140-440); RBC 2.86 M/ul (4.3-5.7); RDW 16.1 (10.5-15.0)
--- NOTE | 2024-03-25 06:09 | NUR ---
LAB IN ROOM FOR MORNING DRAW. PT UP TO BSC TO VOID 300 ML ORANGISH COLORED URINE. BACK TO BED, KAIDEN FAIR. PT A&O X 3. MOVEMENTS REMAIN SHAKY AND UNCOORDINATED. PT ABLE TO FOLLOW DIRECTION. SPEECH IS CLEAR. PT ABLE TO ANSWER QUESTIONS APPROPRIATELY. FRESH WATER PROVIDED. NO FURTHER NEEDS. BED ALARM FOR SAFETY.
[2024-03-25 06:20] LABS: ALBUMIN 2.2 g/dL (3.4-5.0); ALBUMIN/GLOBULIN RATIO 0.5 (1.1-2.4); ANION GAP 12.3 (7-21); BILIRUBIN, TOTAL 1.5 ng/dL (0.2-1.0); BUN/CREATININE RATIO 1.51 (6.0-28.6); CREATININE, SERUM 0.66 mg/dL (0.55-1.02); MAGNESIUM 1.4 mg/dL (1.8-2.4); POTASSIUM 3.3 mmol/L (3.5-5.1); PROTEIN, TOTAL 6.6 g/dL (6.4-8.2)
[2024-03-25 06:26] LABS: BASOPHILS, MANUAL DIFF 1; EOSINOPHILS, MANUAL DIFF 1; LYMPHOCYTES, MANUAL DIFF 23; MONOCYTES, MANUAL DIFF 15; NEUTROPHILS, MANUAL DIFF 60
--- NOTE | 2024-03-25 07:07 | NUR ---
REPORT RECEIVED FROM DIGITAL CAMPAIGN SPECIALIST RON FLANAGAN. PATIENT WITH FENTANYL PATCH LOCATED ON THE RIGHT SHOULDER AREA. PATCH OBSERVED WITH RON FLANAGAN. PATIENT STATED NO NEEDS AT THIS TIME. CALL LIGHT AND PERSONAL BELONGINGS ARE WITHIN REACH.
[2024-03-25] MEDS ORDERED: POTASSIUM CHLORIDE 10 MEQ TABCR PO ONE (08:00)
[2024-03-25] MEDS ORDERED: MAGNESIUM SULFATE 2 GM/50 ML BAG IV SCH (08:00)
--- NOTE | 2024-03-25 08:10 | NUR ---
0800 AND 0900 MEDICATIONS ADMINISTERED PER THE EMAR. FULL ASSESSMENT COMPLETE AND DOCUMENTED IN THE CHART. PATIENT IS ALERT AND ORIENTED TIMES FOUR. PATIENT IS ON ROOM AIR WITH THE CPOX AT THE BEDSIDE. LUNG SOUNDS ARE CLEAR IN ALL LUNG LYLES BILATERALLY. CARDIAC WITH NORMAL S1 AND S2 ON AUSCULTATION. SENSATION INTACT WITH NO COMPLAINTS OF NUMBNESS AND TINGLING. BLE WEAKNESS NOTED. PATIENT IS A 2PA AND USES THE BEDSIDE COMMODE. BOWEL TONES ARE ACTIVE IN ALL FOUR QUADRANTS. PATIENT IS ON A 2 GRAM SODIUM DIET WITH A 2,000 ML FLUID RESTRICTION. IV SITE FLUSHED WITH 10 ML NORMAL SALINE. NS IS INFUSING AT 100 ML/HR. IV DRESSING IS CLEAN, DRY, AND INTACT. PAIN IS 5/10. PATIENT WITH THE FENTANYL PATCH ON THE RIGHT SHOULDER. PATIENT IS NOT REQUESTING PAIN MEDICATION AT THIS TIME. PATIENT USED THE BEDSIDE COMMODE AT THIS TIME WITH RN AND REFRIGERATING OILER. PATIENT IS LYING IN BED WITH EYES CLOSED AND RESPIRATIONS ARE EVEN AND UNLABORED AFTER USING THE BEDSIDE COMMODE. PATIENT STATED NO FURTHER NEEDS AT THIS TIME. CALL LIGHT AND PERSONAL BELONGINGS ARE WITHIN REACH.
--- NOTE | 2024-03-25 08:45 | NUR ---
PATIENT REPOSITIONED AND SITTING UP FOR BREAKFAST. BOARD UPDATED. CALL LIGHTIN EASY REACH
--- NOTE | 2024-03-25 08:50 | NUR ---
PATIENT BOOSTED AND REPOSITIONED IN THE BED AT THIS TIME WITH DAVE HORNER. PATIENT TOLERATED WELL.
[2024-03-25] MEDS ORDERED: THIAMINE HCL IV SCH (09:08)
[2024-03-25] MEDS ORDERED: DEXTROSE 5% IV SCH (09:08)
--- NOTE | 2024-03-25 09:44 | NUR ---
VITALS AND I&OS CHARTED. PATIENT NOW RESTING WITH EYES CLOSED. 50% OF BREAKFAST CONSUMED. CALL LIGHTIN EASY REACH
--- NOTE | 2024-03-25 09:57 | NUR ---
PATIENT IS SITTING UPRIGHT IN BED WITH EYES OPEN AND RESPIRATIONS ARE EVEN AND UNLABORED. CALL LIGHT AND PERSONAL BELONGINGS ARE WITHIN REACH.
--- NOTE | 2024-03-25 10:07 | NUR ---
PATIENT IS SITTING UPRIGHT IN BED AWAKE AND ALERT. POTASSIUM CHLORIDE PILLS AND 2 G MAGNESIUM SULFATE ADMINISTERED AT THIS TIME. CPOX AT THE BEDSIDE. PATIENT STATED NO FURTHER NEEDS AT THIS TIME. CALL LIGHT AND PERSONAL BELONGINGS ARE WITHIN REACH.
--- NOTE | 2024-03-25 11:22 | NUR ---
PATIENT IS WORKING WITH OCCUPATIONAL THERAPY AT THIS TIME.
--- NOTE | 2024-03-25 11:45 | NUR ---
Spoke with Porsche. She much clearer today. Pt discussing she has not been working at [employer] since she hurt her leg. We discussed her last discharge and she had been very depressed. She does not remember if she started her antidepressant. I attempted to discuss tox screen and if she has is still drinking. Pt states she "does not want to discuss any of this". Pt needed to void and starts to get up. Aid to room and assisted to bsc with 2 person assist. Pt is very jerky and weak. Pt required 2 people to keep from falling. Pt is also very painful getting to sitting or lying position from her fractured ribs.
--- NOTE | 2024-03-25 12:27 | NUR ---
ROUNDING ON THE PATIENT AT THIS TIME.
--- NOTE | 2024-03-25 13:09 | NUR ---
PATIENT IS SITTING UPRIGHT IN THE CHAIR WITH EYES CLOSED AND RESPIRATIONS ARE EVEN AND UNLABORED. CALL LIGHT AND PERSONAL BELONGINGS ARE WITHIN REACH.
--- NOTE | 2024-03-25 14:05 | NUR ---
PATIENT IS LYING IN BED WITH THE HOB ELEVATED. PATIENT IS ALERT AND CALM. PATIENT IS ALERT AND ORIENTED TO SELF AND SITUATION ONLY. PATIENT IS DISORIENTED TO PLACE AND MONTH. PATIENT WITH PAIN RATED 4/10 THAT "COMES AND GOES". PATIENT IS NOT REQUESTING PAIN MEDICATION AT THIS TIME. IV SITE FLUSHED WITH 10 ML NORMAL SALINE AND NS IS INFUSING AT 100 ML/HR. IV DRESSING IS CLEAN, DRY, AND INTACT. PATIENT STATED NO FURTHER NEEDS AT THIS TIME. CALL LIGHT AND PERSONAL BELONGINGS ARE WITHIN REACH.
--- NOTE | 2024-03-25 15:12 | NUR ---
UR CONCURRENT REVIEW: [facility] [place]-DOES NOT MEET DAY [facility]NN[facility] GOTTI PPO INPT 03/22/24 @ 1535 CLINICALS FAXED TO JOHNNIE FOR AUTH. 03/27/24
--- NOTE | 2024-03-25 15:36 | NUR ---
PATIENT IS LYING IN BED WITH EYES CLOSED AND RESPIRATIONS ARE EVEN AND UNLABORED. CPOX AT THE BEDSIDE. NS INFUSING AT 100 ML/HR. CALL LIGHT AND PERSONAL BELONGINGS ARE WITHIN REACH.
--- NOTE | 2024-03-25 15:50 | NUR ---
IV PUMP CLEARED AT THIS TIME. PATIENT IS IN THE ROOM VISITING. PATIENT STATED NO NEEDS AT THIS TIME. CALL LIGHT AND PERSONAL BELONGINGS ARE WITHIN REACH.
[2024-03-25 16:20] LABS: VITAMIN B1,PLASMA 32 nmol/L (4-15)
--- NOTE | 2024-03-25 19:20 | NUR ---
REPORT RECEIVED SANDY VELASQUEZ. pt RESTING IN THE BED. BOARD UPDATED. pt REQUESTED TO USE THE BR. pt 1PA TO BR WITH THE FWW. pt BACK TO BED. pt DENIES ANY OTHER NEEDS AT THIS TIME. CALL LIGHT WITHIN REACH. DINNER SANDHYA TAKEN AWAY.
--- NOTE | 2024-03-25 20:52 | NUR ---
Patient used call light to use the bedside commode. Patient voided and back in bed 2PA. Patient boosted up in bed and covered with her sheets. She denies needing anything at this time.
--- NOTE | 2024-03-25 20:59 | NUR ---
Patient given evening medications. Pt requested something to help her sleep as she feels she has been napping a lot today and wont be able to fall asleep. Pt given melatonin. Bed alarm on. Bed laid back for patient and lights turned down.
--- NOTE | 2024-03-25 21:30 | NUR ---
ASSESSMENT DONE. pt DENIES ANY NEED AT THIS TIME. CALL LIGHT WITHIN REACH. pt A&O X4. pt DENIES A HEAT PACK FOR HER BACK.
--- NOTE | 2024-03-25 23:10 | NUR ---
pt RESTING IN THE BED WITH EYES CLOSED. RR EVEN AND UNLABORED. CALL LIGHT WITHIN REACH.
--- NOTE | 2024-03-26 00:11 | NUR ---
CALL LIGHT ANSWERED. PT NEEDED TO USE BATHROOM. CIVIL LITIGATION ATTORNEY 1PA WITH FWW TO BATHROOM. PT UNSTEADY GAIT. PT VOIDED AND ASSISTED BACK TO BED. OUTPUT MEAUSRED. PT STATES NO FURTHER NEEDS AT THIS TIME. CALL LIGHT WITHIN REACH AND BED ALARM ON.
--- NOTE | 2024-03-26 01:35 | NUR ---
pt RESTING IN THE BED WITH EYES CLOSED. RR EVEN AND UNLABORED. CALL LIGHT WITHIN REACH.
--- NOTE | 2024-03-26 03:49 | NUR ---
CALL LIGHT ANSWERED. PT NEEDED TO USE BATHROOM. BUSINESS DEVELOPMENT DIRECTOR 1PA WITH FWW TO BATHROOM. PT GAIT UNSTEADY. PT VOIDED AND ASSISTED BACK TO BED. OUTPUT MEASURED. PT STATES NO FURTHER NEEDS AT THIS TIME. CALL LIGHT WITHIN REACH.
[2024-03-26 05:13] VITALS: BP 135/65
[2024-03-26 05:25] VITALS: BP 135/65
[2024-03-26 05:58] LABS: HEMATOCRIT 29.2 % (35.0-50.0); HEMOGLOBIN 9.7 g/dL (12.0-18.0); MCHC 33.1 g/dl (30-36); MCV 105.7 fl (81-99); PLATELET COUNT 169 K/uL (140-440); RBC 2.77 M/ul (4.3-5.7)
--- NOTE | 2024-03-26 06:05 | NUR ---
pt RESTED THROUGH OUT THE NIGHT. 1-2 PA WITH FWW TO BR. pt A&O X4. CPOX ON SATTING AT 94%.
[2024-03-26 06:18] LABS: BANDS, MANUAL DIFF 1; BASOPHILS, MANUAL DIFF 2; EOSINOPHILS, MANUAL DIFF 6; LYMPHOCYTES, MANUAL DIFF 27; MONOCYTES, MANUAL DIFF 6; NEUTROPHILS, MANUAL DIFF 58
[2024-03-26 06:46] LABS: ALBUMIN/GLOBULIN RATIO 0.49 (1.1-2.4); ANION GAP 11.7 (7-21); BILIRUBIN, TOTAL 1.6 ng/dL (0.2-1.0); BUN/CREATININE RATIO 1.75 (6.0-28.6); CALCIUM 7.9 mg/dL (8.5-10.1); CREATININE, SERUM 0.57 mg/dL (0.55-1.02); MAGNESIUM 1.4 mg/dL (1.8-2.4); PHOSPHORUS, INORGANIC 3.6 mg/dL (2.5-4.9); POTASSIUM 3.7 mmol/L (3.5-5.1); PROTEIN, TOTAL 6.1 g/dL (6.4-8.2)
--- NOTE | 2024-03-26 07:26 | NUR ---
REPORT RECEIVED FROM ELIO VELASQUEZ, ALL QUESTIONS ANSWERED. PT LYING AWAKE IN BED, VERIFIED FENTANYL PATCH ON RIGHT BACK SHOULDER. PT DENIES NEEDS AT THIS TIME. CALL LIGHT IN REACH.
--- NOTE | 2024-03-26 08:25 | NUR ---
IN IV PUMP ALARMING. PT REPORTING TOILETING NEEDS. PT SL AT THIS TIME. 1PA WITH FWW FROM BED TO RESTROOM. PT NOTED TO HAVE UNSTEADY/WABBLY GAIT. VOID NOTED. 1PA WITH FWW BACK TO BED. PT DENIES ANY OTHER NEEDS AT THIS TIME. CALL LIGHT IN REACH. BED ALARM ON. MALE VISITOR IN ROOM. RON MILLAN NOTIFIED THAT IV FLUID BAG IS EMPTY. PT DENIES ANY OTHER NEEDS AT THIS TIME. CALL LIGHT IN REACH. BED ALARM ON.
[2024-03-26] MEDS ORDERED: MAGNESIUM SULFATE 2 GM/50 ML BAG IV SCH (09:00)
--- NOTE | 2024-03-26 09:23 | NUR ---
1PA TO BR. TUBBS CHANGED
[2024-03-26 09:29] VITALS: BP 146/74
--- NOTE | 2024-03-26 09:41 | NUR ---
MORNING ASSESSMENT COMPLETE. PT ALERT AND ORIENTED, DISORIENTED TO TIME. PT STATES SHE "FEELS A LOT BETTER THAN BEFORE" STATES HER RIBS ONLY PAINFUL IF TOUCHED OR MOVING IN BED, DENIES NEED FOR INTERVENTION AT THIS TIME. PT DENIES FURHTER NEEDS AT THIS TIME. CALL LIGHT IN REACH.
[2024-03-26] MEDS ORDERED: FOLIC ACID1 MG PO (11:37)
[2024-03-26] MEDS ORDERED: MAGNESIUM250 MG PO (11:38)
[2024-03-26] MEDS ORDERED: OXYCODON-ACETA1 EAC2 PO (11:42)
--- NOTE | 2024-03-26 12:54 | NUR ---
In and spoke with Porsche. She will dc to home today. She worked with PT and was walking better today. Pt has called her and he will pick her up from work. She denies any needs. She declines a walker. We discussed HH and pt declines states she does not want anyone in her home. She also states she drives and will be driving. Texted Dr. Erazo and asked if he would agree to order OP therapy. Pt agrees to this. Verbal order for HH. Pt denies other needs. Will leave shortly as spouse is on his way.
[2024-03-26 13:20] VITALS: BP 148/65
--- NOTE | 2024-03-26 15:09 | NUR ---
Chart copied and sent to [facility] physical therapy with referral.
[2024-03-27] MEDS ORDERED: fentaNYL 1 EACH TDSY TD SCH (09:00)
== END 2024-03-26 13:25 | disposition home or self-care (01) | DRG 690 ==
LOC: ED 09:56 → MS 15:35
PROVIDERS: Emergency Medicine; ADMIT Student in an Organized Health Care Education/Training Program; ATTEND Family Medicine
DX: N39.0 Urinary tract infection, site not specified (principal); S22.42XA Multiple fractures of ribs, left side, initial encounter for closed fracture; E87.1 Hypo-osmolality and hyponatremia; E51.2 Wernicke's encephalopathy; E83.42 Hypomagnesemia; G40.909 Epilepsy, unspecified, not intractable, without status epilepticus; F39 Unspecified mood [affective] disorder; R29.6 Repeated falls; W18.30XA Fall on same level, unspecified, initial encounter; B96.89 Other specified bacterial agents as the cause of diseases classified elsewhere; E87.6 Hypokalemia; Z87.891 Personal history of nicotine dependence; Z90.49 Acquired absence of other specified parts of digestive tract
CPT/HCPCS: 36415; 70450; 70551; 71045; 71260; 73030; 74177; 80053; 80307; 81001; 82140; 82607; 82746; 83605; 83690; 83735; 84100; 84425; 84439; 84443; 84484; 85025; 87088; 92507; 92523; 93005; 93010; 97116; 97162; 97166; 97530; 97535; A9270; G0480; J0696; J1170; J1650; J3411; J3475; J7030; Q9967

== ENCOUNTER 2024-05-16 14:59 | Emergency (ER) | payer OTHER, BC ==
[~2024-05-16] VITALS: Ht 170.2 cm; Wt 66.3 kg
[~2024-05-16 14:59] MED LIST changes: +FOLIC ACID1 MG PO; +MAGNESIUM250 MG PO
[2024-05-16] MEDS ORDERED: LIDOCAINE/RACEPINEP/TETRACAINE 3 ML SYR TOP ONE (15:30)
[2024-05-16] MEDS ORDERED: DIPHTH,PERTUSS(ACELL),TET VAC 0.5 ML SYRINGE IM ONE (15:30)
[2024-05-16 17:52] VITALS: BP 138/82
== END 2024-05-16 17:52 | disposition home or self-care (01) ==
LOC: ED 14:59
DX: S01.112A Laceration without foreign body of left eyelid and periocular area, initial encounter (principal); I10 Essential (primary) hypertension; Z87.891 Personal history of nicotine dependence; Z79.899 Other long term (current) drug therapy; W18.09XA Striking against other object with subsequent fall, initial encounter
CPT/HCPCS: 12013; 70450; 70486; 99283-25

== ENCOUNTER 2024-09-30 12:32 | Emergency (ER) | payer OTHER, BC ==
[~2024-09-30] VITALS: Ht 170.2 cm; Wt 70.0 kg
[2024-09-30] MEDS ORDERED: ondansetron HCL 4 MG/2 ML VIAL IV ONE (12:45)
[2024-09-30] MEDS ORDERED: HYDROmorphone HCL 1 MG/ML SYR IV PRN (12:45)
[2024-09-30 13:07] LABS: HEMATOCRIT 24.1 % (35.0-50.0); HEMOGLOBIN 8.3 g/dL (12.0-18.0); MCH 37.4 (27-36); MCHC 34.4 g/dl (30-36); MCV 108.9 fl (81-99); PLATELET COUNT 99 K/uL (140-440); RBC 2.22 M/ul (4.3-5.7); RDW 18.2 (10.5-15.0)
[2024-09-30 13:15] LABS: INR 1.63 (0.80-1.30); PROTIME 19.3 Sec (11.2-14.2)
[2024-09-30 13:22] LABS: ALBUMIN 2.9 g/dL (3.4-5.0); ALBUMIN/GLOBULIN RATIO 0.69 (1.1-2.4); BILIRUBIN, TOTAL 5.5 mg/dL (0.2-1.0); BUN/CREATININE RATIO 24.44 (6.0-28.6); CALCIUM 8.3 mg/dL (8.5-10.1); CREATININE, SERUM 0.9 mg/dL (0.55-1.02); PROTEIN, TOTAL 7.1 g/dL (6.4-8.2)
[2024-09-30 13:34] LABS: BANDS, MANUAL DIFF 2; BASOPHILS, MANUAL DIFF 1; EOSINOPHILS, MANUAL DIFF 1; LYMPHOCYTES, MANUAL DIFF 26; MONOCYTES, MANUAL DIFF 19; NEUTROPHILS, MANUAL DIFF 51
[2024-09-30 15:19] VITALS: BP 105/67
[2024-10-01 23:45] LABS: KEPPRA (LEVETIRACETAM) 14 ug/mL (10-40)
== END 2024-09-30 15:15 | disposition short-term general hospital (02) ==
LOC: ED 12:32
PROVIDERS: Emergency Medicine
DX: S27.2XXA Traumatic hemopneumothorax, initial encounter (principal); W01.0XXA Fall on same level from slipping, tripping and stumbling without subsequent striking against object, initial encounter; K74.60 Unspecified cirrhosis of liver; D68.9 Coagulation defect, unspecified; I10 Essential (primary) hypertension; K21.9 Gastro-esophageal reflux disease without esophagitis; Z87.891 Personal history of nicotine dependence; Z79.899 Other long term (current) drug therapy
CPT/HCPCS: 36415; 70450; 71260; 72125; 73130; 74177; 80053; 80177; 83690; 83735; 85025; 85610; 99285-25; G0480; J1171; J2405; Q9967

== ENCOUNTER 2024-10-10 10:12 | Emergency (ER) | payer OTHER, BC ==
[~2024-10-10] VITALS: Ht 170.2 cm; Wt 75.1 kg
--- OUTSIDE RECORDS SUMMARY | 2024-10-10 10:18 | XMS ---
PreManage Notification: RANDY CALDWELL Security School Bus Driver/Teacher Assistant Events No recent Security Events currently on file CRITERIA MET - [facility] - 2 Visits in 30 Days CARE PROVIDERS There are no care providers on record at this time. Jesus has no Care Guidelines for this patient. Carol VISIT COUNT (12 MO.) 5 [facility] TOTAL 6 NOTE: Visits indicate total known visits. ED/C VISIT TRACKING (12 MO.) 10/10/2024 10:12 [facility] TYPE: Emergency COMPLAINT: - SWELLING 09/30/2024 16:45 [facility] TYPE: Emergency DIAGNOSES: - Fall - Falls, Rib fx's, 2 x pelvic fx's, Pneumothorax and Hemothorax 09/30/2024 12:[address] [facility] [place] TYPE: Emergency COMPLAINT: - FALL DIAGNOSES: - Coagulation defect, unspecified - Essential (primary) hypertension - Fall on same level from slipping, tripping and stumbling without subsequent striking against object, initial encounter - Gastro-esophageal reflux disease without esophagitis - Other fpc (current) drug therapy - Personal history of nicotine dependence - Pleurodynia - Traumatic hemopneumothorax, initial encounter - Unspecified cirrhosis of liver 05/16/2024 14:59 [facility] TYPE: Emergency COMPLAINT: - FALL DIAGNOSES: - Essential (primary) hypertension - Laceration without foreign body of left eyelid and periocular area, initial encounter - Other fpc (current) drug therapy - Personal history of nicotine dependence - Striking against other object with subsequent fall, initial encounter 03/22/2024 09:56 [facility] TYPE: Emergency COMPLAINT: - ALTERED STATUS 03/08/2024 17:37 [facility] TYPE: Emergency COMPLAINT: - VOMITING INPATIENT VISIT TRACKING (12 MO.) 09/30/2024 16:45 [facility] TYPE: Surgery DIAGNOSES: - Alcohol dependence, uncomplicated - Anemia, unspecified - Liver disease, unspecified - Multiple fractures of ribs, left side, initial encounter for closed fracture - Multiple fractures of ribs, unspecified side, initial encounter for closed fracture - Other specified fracture of left pubis, initial encounter for closed fracture - Traumatic hemopneumothorax, initial encounter - Wedge compression fracture of T11-T12 vertebra, initial encounter for closed fracture - Wedge compression fracture of T7-T8 vertebra, initial encounter for closed fracture - Wedge compression fracture of T7-T8 vertebra, sequela - Wedge compression fracture of T7-T8 vertebra, subsequent encounter for fracture with routine healing 03/22/2024 15:35 [facility] TYPE: Medical Surgical COMPLAINT: - UTI DIAGNOSES: - Acquired absence of other specified parts of digestive tract - Epilepsy, unspecified, not intractable, without status epilepticus - Fall on same level, unspecified, initial encounter - Hypo-osmolality and hyponatremia - Hypokalemia - Hypomagnesemia - Multiple fractures of ribs, left side, initial encounter for closed fracture - Other specified bacterial agents as the cause of diseases classified elsewhere - Personal history of nicotine dependence - Repeated falls - Unspecified mood [affective] disorder - Urinary tract infection, site not specified - Wernicke's encephalopathy 03/09/2024 08:25 [facility] TYPE: Medical [...] Tobacco abuse counseling - Tobacco abuse counseling [email or web address]
[2024-10-10] MEDS ORDERED: ACETAMINOPHEN325 M1 PO (10:44)
[2024-10-10] MEDS ORDERED: VITAMIN C250 MG PO (10:44)
[2024-10-10] MEDS ORDERED: OXYCODONE HCL5 MG PO (10:44)
[2024-10-10] MEDS ORDERED: FEROSUL325 MG PO (10:44)
[2024-10-10] MEDS ORDERED: METHOCARBAMOL500 MG PO (10:45)
[2024-10-10] MEDS ORDERED: HYDROmorphone HCL 1 MG/ML SYR IV ONE ×2 (10:45→16:00)
[2024-10-10] MEDS ORDERED: POLYETHYLENE GL17 GM PO (10:45)
[2024-10-10 10:46] LABS: HEMATOCRIT 32.6 % (35.0-50.0); HEMOGLOBIN 10.9 g/dL (12.0-18.0); MCH 36.6 (27-36); MCHC 33.5 g/dl (30-36); MCV 109.1 fl (81-99); PLATELET COUNT 192 K/uL (140-440); RBC 2.98 M/ul (4.3-5.7); RDW 19.5 (10.5-15.0)
[2024-10-10 10:55] LABS: INR 1.41 (0.80-1.30); PROTIME 17.2 Sec (11.2-14.2)
[2024-10-10 11:00] LABS: ALBUMIN 2.6 g/dL (3.4-5.0); ALBUMIN/GLOBULIN RATIO 0.58 (1.1-2.4); ANION GAP 12.5 (7-21); BILIRUBIN, TOTAL 2.7 mg/dL (0.2-1.0); BUN/CREATININE RATIO 12.5 (6.0-28.6); CALCIUM 8.4 mg/dL (8.5-10.1); CREATININE, SERUM 0.56 mg/dL (0.55-1.02); POTASSIUM 3.5 mmol/L (3.5-5.1); PROTEIN, TOTAL 7.1 g/dL (6.4-8.2)
[2024-10-10 11:04] LABS: BASOPHILS, MANUAL DIFF 1; EOSINOPHILS, MANUAL DIFF 9; LYMPHOCYTES, MANUAL DIFF 17; MONOCYTES, MANUAL DIFF 14; NEUTROPHILS, MANUAL DIFF 59
[2024-10-10] MEDS ORDERED: fentaNYL citrate 100 MCG/2 ML VIAL IV ONE (11:15)
[2024-10-10] MEDS ORDERED: OXYCODONE/APAP 10/325 TAB PO ONE ×2 (13:00→15:30)
[2024-10-10 15:00] LABS: BILIRUBIN, URINE NEGATIVE (negative); BLOOD/HGB, URINE NEGATIVE (Negative); KETONE, URINE NEGATIVE (Negative); LEUK ESTERASE, URINE NEGATIVE (negative); NITRITE, URINE NEGATIVE (negative)
[2024-10-10] MEDS ORDERED: LASIX40 MG PO (15:58)
[2024-10-10 16:20] VITALS: BP 152/71
== END 2024-10-10 16:21 | disposition home or self-care (01) ==
LOC: ED 10:12
PROVIDERS: Emergency Medicine
DX: S22.42XA Multiple fractures of ribs, left side, initial encounter for closed fracture (principal); S32.592A Other specified fracture of left pubis, initial encounter for closed fracture; S22.069A Unspecified fracture of T7-T8 vertebra, initial encounter for closed fracture; S22.089A Unspecified fracture of T11-T12 vertebra, initial encounter for closed fracture; R60.0 Localized edema; I10 Essential (primary) hypertension; K74.60 Unspecified cirrhosis of liver; K21.9 Gastro-esophageal reflux disease without esophagitis; Z87.891 Personal history of nicotine dependence; G40.909 Epilepsy, unspecified, not intractable, without status epilepticus; Z79.899 Other long term (current) drug therapy; W19.XXXA Unspecified fall, initial encounter
CPT/HCPCS: 36415; 51702; 71045; 72170; 80053; 81003; 83690; 85025; 85610; 93970; 99284-25; J1171; J3010